=== PATIENT | male | born 1970 | race Caucasian/White ===

== ENCOUNTER 2021-10-24 07:42 | Inpatient (IN) | payer OTHER, MEDICAID ==
[~2021-10-24] VITALS: Ht 177.8 cm; Wt 135.6 kg
[~2021-10-24 07:42] MED LIST: CLINDAMYCIN IV; LEVO750T51 PO; METH-1550 PO
--- NOTE | 2021-10-24 07:48 | NUR ---
pt placed in bed 10, ermd at bedside
[2021-10-24 07:49] VITALS: BP 75/43
[2021-10-24] MEDS ORDERED: PANTOPRAZOLE 40 MG INJ VIAL IVP ONE (07:55)
[2021-10-24] MEDS ORDERED: ONDANSETRON 4 MG/2 ML VIAL IVP ONE (07:55)
--- NOTE | 2021-10-24 08:00 | NUR ---
received by als run from [facility] c/o nosebleed, vomiting blood since this am. pt gcs 15 appears lethargic pale. stach on monitor 130s hypotensive in 70s. double lumen picc line noted fluids infusing per order.
[2021-10-24] MEDS ORDERED: NACL 0.9% 1,000 ML IV ONE (08:05)
[2021-10-24] MEDS ORDERED: BENZOCAINE 20% 57 GM CAN MC ONE (08:08)
[2021-10-24 08:27] LABS: BASOPHILS # (AUTO) 0.1 K/uL (0.00-0.22); BASOPHILS % (AUTO) 1.3 % (0.0-2.0); EOSINOPHILS # (AUTO) 0.3 K/uL (0-0.4); EOSINOPHILS % (AUTO) 5.2 % (0.0-4.0); HEMATOCRIT 24.7 % (36-52); HEMOGLOBIN 8.8 g/dL (12.0-18.0); LYMPHOCYTES # (AUTO) 1.6 K/uL (2.0-11.5); LYMPHOCYTES % (AUTO) 25.9 % (20.5-51.1); MEAN CORPUSCULAR HEMOGLOBIN 31 pg (27-31); MEAN CORPUSCULAR HGB CONC 36 g/dL (33-37); MEAN CORPUSCULAR VOLUME 86.7 fL (80-94); MONOCYTES # (AUTO) 0.5 K/uL (0.8-1.0); MONOCYTES % (AUTO) 7.8 % (1.7-9.3); NEUTROPHILS # (AUTO) 3.6 K/uL (1.8-7.7); NEUTROPHILS % (AUTO) 59.8 % (42.2-75.2); PLATELET COUNT (AUTO) 63 K/uL (140-450); RED BLOOD CELL COUNT(AUTO) 2.85 MIL/uL (4.20-6.10); RED CELL DISTRIBUTION WIDTH 17.3 % (11.6-13.7)
--- NOTE | 2021-10-24 08:30 | NUR ---
pt vomited large amounts of dark red blood with clots approx 150ml attempted ngtube twice without success. pt remains hypotensive tachycardic
[2021-10-24 08:49] LABS: ALBUMIN 2.5 g/dL (3.4-5.0); ANION GAP 9.6 (8-16); CARBON DIOXIDE 25.2 mmol/L (21-32); CREATININE 0.8 mg/dL (0.6-1.3); POTASSIUM 3.8 mmol/L (3.5-5.1); TOTAL BILIRUBIN 1.7 mg/dL (0.0-1.0)
[2021-10-24] MEDS ORDERED: NOREPINEPHRINE 4 MG/4 ML VIAL IV ONE ×6 (09:01→21:19)
[2021-10-24] MEDS ORDERED: NOREPINEPHRINE 4 MG in DEXTROSE 5% 250 ML IV ONE (09:10)
--- NOTE | 2021-10-24 09:31 | NUR ---
levophed infusing per orders
[2021-10-24 09:38] LABS: CREATINE KINASE MB 2.8 ng/mL (0-3.6)
[2021-10-24] MEDS ORDERED: cefTRIAXone 1,000 MG VIAL ONE (09:39)
--- NOTE | 2021-10-24 09:40 | NUR ---
1st unit of prbcs infusing per order wide open per MD order
--- NOTE | 2021-10-24 10:21 | NUR ---
2nd unit of prbcs infusing tolerating well. no adverse reaction noted. will continue to monitor.
[2021-10-24] MEDS ORDERED: fentaNYL citrate 0.05 MG/ML VIAL IVP ONE ×2 (10:35→16:30)
[2021-10-24] MEDS: PANTOPRAZOLE 80 MG in NACL 0.9% 100 ML IVP SCH (11:15)
--- NOTE | 2021-10-24 12:05 | NUR ---
ADMITTING MD AT BEDSIDE
--- NOTE | 2021-10-24 12:05 | NUR ---
3RD UNIT OF PRBCS INFUSING TOLERATING WELL
--- NOTE | 2021-10-24 12:06 | NUR ---
LEVOPHED AT 30MCG/MIN , MADE AWARE. NO FURTHER ORDERS FOR PRESSURES BUT ORDERS FOR MORE BLOOD TO BE TRANSFUSED
--- NOTE | 2021-10-24 12:10 | NUR ---
triple lumen central line placed to right IJ by er md. castaneda for immediate use per .
[2021-10-24] MEDS ORDERED: HYDROcodone/APAP 5/325 MG 1 TAB TAB PO PRN (12:20)
[2021-10-24] MEDS ORDERED: MORPHINE SULFATE 2 MG/ML SYR IVP PRN (12:20)
[2021-10-24] MEDS ORDERED: SODIUM PHOS / POTASSIUM PHOS 1 PKT PDR PO PRN (12:20)
[2021-10-24] MEDS ORDERED: KCL 20 MEQ/WATER INJ PREMIX 200 ML IV PRN (12:20)
[2021-10-24] MEDS ORDERED: ACETAMINOPHEN 325 MG TAB PO PRN (12:20)
[2021-10-24] MEDS ORDERED: MAG SULF 2000 MG/WATER PREMIX 50 ML IV PRN (12:20)
[2021-10-24] MEDS ORDERED: DOCUSATE SODIUM 100 MG GELCAP PO PRN (12:20)
--- NOTE | 2021-10-24 12:30 | NUR ---
pt with uncontrollable amounts of dark red rectal bleeding with large amount of clots. pt appears pale cool, lethargic. cleaned and repositioned. blood infusing per order. md at bedside aware. paged dr castillo spoke to him regarding condition and need for emergent GI intervention
[2021-10-24] MEDS ORDERED: OCTREOTIDE ACETATE 100 MCG/ML VIAL IV ONE (12:35)
[2021-10-24 12:58] LABS: MAGNESIUM 1.6 mg/dL (1.8-2.4); PHOSPHORUS 3.9 mg/dL (2.5-4.9)
--- NOTE | 2021-10-24 13:00 | NUR ---
pt continues with large amount of rectal bleeding with clots x2 episodes of hematemesis. stach on monitor. hypotensive. blood infusing, levophed 30mcg/min infusing. MD aware.
[2021-10-24] MEDS: OCTREOTIDE ACETATE 1.25 MG in NACL 0.9% 250 ML IV SCH (14:00)
[2021-10-24] MEDS ORDERED: fentaNYL citrate 0.05 MG/ML VIAL ONE (14:23)
[2021-10-24] MEDS ORDERED: MIDAZOLAM 5 MG/5 ML VIAL ONE (14:23)
[2021-10-24] MEDS ORDERED: diphenhydrAMINE 50 MG/ML VIAL ONE (14:23)
[2021-10-24] MEDS ORDERED: ERYTHROMYCIN 250 MG in NACL 0.9% 100 ML IV SCH (14:30)
--- NOTE | 2021-10-24 14:39 | NUR ---
# 16 FR Gonzalez catheter with 10 ml utilizing sterile technique. Immediate return of CL YELLOW 300 ml urine noted. Bedside drainage bag placed below level of bladder. Urine sample collected and sent to lab. Pt tolerated procedure WELL.
[2021-10-24 15:12] LABS: BARBITURATE, URINE NEGATIVE ng/ml (NEG <=200); BENZODIAZEPINE, URINE POSITIVE ng/mL (NEG <=200); CANNABINOID, URINE NEGATIVE ng/mL (NEG <=50); COCAINE, URINE NEGATIVE ng/mL (NEG <=300); PHENCYCLIDINE SCREEN,URINE NEGATIVE ng/mL (NEG <=25)
[2021-10-24 15:13] LABS: OPIATE, URINE POSITIVE ng/mL (NEG <=2000)
--- NOTE | 2021-10-24 15:15 | NUR ---
gi at bedside for egd
--- NOTE | 2021-10-24 15:40 | NUR ---
completed egd with banding
[2021-10-24] MEDS ORDERED: PHENYLEPHRINE 10 MG/ML VIAL ONE (15:42)
--- NOTE | 2021-10-24 16:00 | NUR ---
pt alert oriented drowsy from procedure. breathing unlabored. no active bleeding noted. stach on monitor. iv infusing levophed per order. tolerated well. f/c draining to gravity. will continue to closely monitor.
[2021-10-24 16:25] LABS: BASOPHILS % (AUTO) 0.1 % (0.0-2.0); EOSINOPHILS % (AUTO) 0.1 % (0.0-4.0); HEMATOCRIT 31.5 % (36-52); HEMOGLOBIN 10.6 g/dL (12.0-18.0); LYMPHOCYTES # (AUTO) 1.2 K/uL (2.0-11.5); LYMPHOCYTES % (AUTO) 7.5 % (20.5-51.1); MEAN CORPUSCULAR HEMOGLOBIN 30 pg (27-31); MEAN CORPUSCULAR HGB CONC 34 g/dL (33-37); MEAN CORPUSCULAR VOLUME 88.6 fL (80-94); MONOCYTES # (AUTO) 0.9 K/uL (0.8-1.0); MONOCYTES % (AUTO) 5.7 % (1.7-9.3); NEUTROPHILS # (AUTO) 13.8 K/uL (1.8-7.7); NEUTROPHILS % (AUTO) 86.6 % (42.2-75.2); PLATELET COUNT (AUTO) 112 K/uL (140-450); RED BLOOD CELL COUNT(AUTO) 3.56 MIL/uL (4.20-6.10); RED CELL DISTRIBUTION WIDTH 16.3 % (11.6-13.7); WHITE BLOOD COUNT (AUTO) 15.9 K/uL (4.8-10.8)
[2021-10-24] MEDS ORDERED: EPINEPHrine PFS 0.1 MG/ML SYR IVP ONE ×3 (16:30→16:33)
[2021-10-24] MEDS ORDERED: MIDAZOLAM 2 MG/2 ML VIAL IVP ONE (16:30)
--- NOTE | 2021-10-24 17:30 | NUR ---
pt requesting methadone states in withdrawl. spoke to GI pt to remain NPO until tomorrow. orders for morphine IV to be given for withdrawl.
[2021-10-24] MEDS ORDERED: MORPHINE SULFATE 4 MG/ML SYR ONE (17:58)
[2021-10-24] MEDS ORDERED: MORPHINE SULFATE 4 MG/ML SYR IVP PRN (18:00)
--- NOTE | 2021-10-24 18:20 | NUR ---
medicated pt with 4mg morphine ivp for withdrawl. pt c/o restlessness, body pain and anxiety. dr anna delgado.
[2021-10-24] MEDS ORDERED: LORazepam 2 MG/ML VIAL ONE (18:32)
[2021-10-24 19:32] LABS: APPEARANCE,URINE CLEAR (CLEAR); BILIRUBIN,URINE NEGATIVE (NEGATIVE); BLOOD, URINE TRACE-I (NEGATIVE); COLOR,URINE YELLOW (YELLOW); LEUKOCYTE ESTERASE ,URINE NEGATIVE (NEGATIVE); NITRITE, URINE NEGATIVE (NEGATIVE); UGLUCOSE NEGATIVE (NEGATIVE)
[2021-10-24 20:00] VITALS: BP 125/90
[2021-10-24 21:00] VITALS: BP 115/66
[2021-10-24] MEDS: NACL 0.9% 1,000 ML IV SCH (21:30)
[2021-10-24 22:00] VITALS: BP 112/61
[2021-10-24] MEDS: NOREPINEPHRINE 8 MG in DEXTROSE 5% 250 ML IV PRN (22:15)
[2021-10-24] MEDS: LORazepam 2 MG/ML VIAL IVP PRN (22:24)
[2021-10-24 23:00] VITALS: BP 110/66
[2021-10-25] VITALS (23 sets, daily range): BP systolic 90–130; BP diastolic 51–84
--- NOTE | 2021-10-25 00:36 | NUR ---
PATIENT AWAKE ALERT ON ROOM AIR SAT 97% PATIENT ON MONITOR SINUS TACH HAS IJ IN RIGHT NECK INFUSING LEVOPHED 7 MCG 26ML HOUR.PROTONIX 10 MG, SANDOSTATIN 25 MCG. PATIENT HAS F/C DRAINING AJIT URINE, A RECTAL TUBE. NS AT 80 HOUR.PATIENT ASK FOR ATIVAN WAS GIVEN 2 MG ATIVAN IVP AT 2224.[address] SCAN OF ABDOMEN.
[2021-10-25 00:44] LABS: HEMATOCRIT 27.3 % (36-52); HEMOGLOBIN 9.6 g/dL (12.0-18.0)
[2021-10-25] MEDS: PANTOPRAZOLE 80 MG in NACL 0.9% 100 ML IVP SCH ×2 (02:07→12:05)
[2021-10-25 06:00] LABS: BASOPHILS # (AUTO) 0.1 K/uL (0.00-0.22); BASOPHILS % (AUTO) 0.6 % (0.0-2.0); EOSINOPHILS # (AUTO) 0.2 K/uL (0-0.4); EOSINOPHILS % (AUTO) 1.7 % (0.0-4.0); HEMATOCRIT 24.3 % (36-52); HEMOGLOBIN 8.6 g/dL (12.0-18.0); LYMPHOCYTES # (AUTO) 1.6 K/uL (2.0-11.5); LYMPHOCYTES % (AUTO) 14.7 % (20.5-51.1); MEAN CORPUSCULAR HEMOGLOBIN 30 pg (27-31); MEAN CORPUSCULAR HGB CONC 35 g/dL (33-37); MEAN CORPUSCULAR VOLUME 85.2 fL (80-94); MONOCYTES % (AUTO) 8.7 % (1.7-9.3); NEUTROPHILS # (AUTO) 8.2 K/uL (1.8-7.7); NEUTROPHILS % (AUTO) 74.3 % (42.2-75.2); PLATELET COUNT (AUTO) 80 K/uL (140-450); RED BLOOD CELL COUNT(AUTO) 2.85 MIL/uL (4.20-6.10); RED CELL DISTRIBUTION WIDTH 16.5 % (11.6-13.7)
[2021-10-25] MEDS: LORazepam 2 MG/ML VIAL IVP PRN (06:07)
[2021-10-25 06:22] LABS: ANION GAP 8.2 (8-16); CARBON DIOXIDE 24.1 mmol/L (21-32); CREATININE 0.7 mg/dL (0.6-1.3); POTASSIUM 4.3 mmol/L (3.5-5.1)
[2021-10-25] MEDS ORDERED: NOREPINEPHRINE 4 MG/4 ML VIAL IV ONE (08:31)
[2021-10-25] MEDS: NOREPINEPHRINE 8 MG in DEXTROSE 5% 250 ML IV PRN (08:49)
--- NOTE | 2021-10-25 08:49 | NUR ---
PATIENT HAS BEEN SCREENED AND CATEGORIZED HIGH NUTRITION RISK. PATIENT WILL BE SEEN WITHIN 1-2 DAYS OF ADMISSION. 10/24/21-10/25/[address]
[2021-10-25] MEDS ORDERED: METHADONE 10 MG TAB PO SCH (09:00)
[2021-10-25] MEDS: NACL 0.9% 1,000 ML IV SCH ×2 (09:37→10:03)
[2021-10-25] MEDS: METHADONE 10 MG TAB PO SCH (09:38)
[2021-10-25] MEDS: METOPROLOL 25 MG TAB PO SCH ×2 (10:05→21:00)
[2021-10-25] MEDS ORDERED: MORPHINE SULFATE 2 MG/ML SYR IVP PRN (12:55)
[2021-10-25 13:48] LABS: HEMATOCRIT 22.3 % (36-52); HEMOGLOBIN 7.8 g/dL (12.0-18.0)
[2021-10-25] MEDS ORDERED: EPINEPHrine PFS 0.1 MG/ML SYR IVP ONE (13:59)
--- NOTE | 2021-10-25 15:15 | NUR ---
10/25/21 RD INITIAL ASSESSMENT COMPLETED PLEASE REFER TO NUTRITION ASSESSMENT UNDER CARE ACTIVITY FOR ESTIMATED NUTRITIONAL NEEDS. 1. WHEN/IF MEDICALLY APPROPRIATE, ADVANCE TO REGULAR DIET 2. RD TO FOLLOW-UP 2-3 DAYS, HIGH RISK PIPE ARORA RD
--- NOTE | 2021-10-25 16:23 | NUR ---
RECTAL TUBE REMOVED PER PATIENT'S REQUEST. DR LITTLE AWARE
--- NOTE | 2021-10-25 17:30 | NUR ---
DR BORJA CALLED REGARDING PATIENT'S STATUS. PROVIDED UPDATE THAT PT HAS BEEN OFF LEVO SINCE AM. RECTAL TUBE WAS TAKEN OUT WITH 25 CC OUTPUT, NO HEMATEMESIS NOTED THROUGHOUT SHIFT. PER MD, SWITCH PROTONIX GTT TO PO, ADD CARAFATE, AND OKAY TO ADVANCE FULL LIQUID DIET.
[2021-10-25 18:52] LABS: HEMATOCRIT 21.8 % (36-52); HEMOGLOBIN 7.6 g/dL (12.0-18.0)
--- NOTE | 2021-10-25 19:41 | NUR ---
REPORT RECEIVED AT BEDSIDE FROM DAYSLEANNEFT RN. PT IS LAYING IN BED ASLEEP. VSS WITH TACHY HR OF 120. ON ROOM AIR. ALOCX4. FULL LIQUID DIET. LUNG SOUNDS CLEAR THROUGHOUT. SKIN INTACT. SKIN TO BLE ROUGH AND DARKER COLOR IN APPEARANCE WITH NO PAIN AND WRAPPED IN HAWA BANDAGE FROM JEIMYFT RN. PT STATED IS FEELING COMFORTABLE AT THIS TIME. INITIAL ASSESSMENT COMPLETED. SAFETY MEASURES ARE IN PLACE. CALL LIGHT WITHIN REACH. WILL CONTINUE TO MONITOR.
[2021-10-25] MEDS: PANTOPRAZOLE 40 MG TABEC PO SCH (21:00)
[2021-10-25] MEDS: SUCRALFATE 1 GM TAB PO SCH (21:00)
--- NOTE | 2021-10-25 21:32 | NUR ---
PT LAYING IN BED ASLEEP. 2100 MEDICATIONS ADMINISTERED ORDERED. NO SIGNS OF DISTRESS NOTED AT THIS TIME. VSS. WILL CONTINUE TO MONITOR.
[2021-10-26] VITALS (24 sets, daily range): BP systolic 12–123; BP diastolic 39–74
--- NOTE | 2021-10-26 00:39 | NUR ---
PT REPOSITIONED AND BM CLEANED. BM TARRY LIKE WITH LIQUID CONSISTENCY. PT TOLERATED WELL. VSS. BED IN LOWEST POSITION AND CALL LIGHT WITHIN REACH. WILL CONTINUE TO MONITOR.
[2021-10-26 00:58] LABS: HEMATOCRIT 20.1 % (36-52); HEMOGLOBIN 7.1 g/dL (12.0-18.0)
[2021-10-26] MEDS: LORazepam 2 MG/ML VIAL IVP PRN ×2 (03:11→22:00)
[2021-10-26] MEDS: NOREPINEPHRINE 8 MG in DEXTROSE 5% 250 ML IV PRN ×2 (03:11→14:13)
--- NOTE | 2021-10-26 03:15 | NUR ---
PT SYSTOLIC BP @83. LEVOPHED STARTED PER PROTOCOL. PT COMPLAINT OF ANXIETY AND TROUBLE SLEEPING. PRN ATIVAN ADMINISTERED ORDERED. TOLERATED WELL. WILL CONTINUE TO MONITOR.
[2021-10-26 06:04] LABS: BASOPHILS # (AUTO) 0.1 K/uL (0.00-0.22); BASOPHILS % (AUTO) 0.7 % (0.0-2.0); EOSINOPHILS # (AUTO) 0.3 K/uL (0-0.4); EOSINOPHILS % (AUTO) 3.5 % (0.0-4.0); HEMATOCRIT 20.1 % (36-52); HEMOGLOBIN 7.1 g/dL (12.0-18.0); LYMPHOCYTES # (AUTO) 1.4 K/uL (2.0-11.5); LYMPHOCYTES % (AUTO) 15.1 % (20.5-51.1); MEAN CORPUSCULAR HEMOGLOBIN 31 pg (27-31); MEAN CORPUSCULAR HGB CONC 35 g/dL (33-37); MEAN CORPUSCULAR VOLUME 86.9 fL (80-94); MONOCYTES # (AUTO) 0.8 K/uL (0.8-1.0); MONOCYTES % (AUTO) 8.2 % (1.7-9.3); NEUTROPHILS # (AUTO) 6.8 K/uL (1.8-7.7); NEUTROPHILS % (AUTO) 72.5 % (42.2-75.2); PLATELET COUNT (AUTO) 66 K/uL (140-450); RED BLOOD CELL COUNT(AUTO) 2.31 MIL/uL (4.20-6.10); RED CELL DISTRIBUTION WIDTH 17.2 % (11.6-13.7); WHITE BLOOD COUNT (AUTO) 9.3 K/uL (4.8-10.8)
[2021-10-26 06:22] LABS: ANION GAP 7.7 (8-16); CARBON DIOXIDE 25.4 mmol/L (21-32); CREATININE 0.7 mg/dL (0.6-1.3); POTASSIUM 4.1 mmol/L (3.5-5.1)
[2021-10-26] MEDS: NACL 0.9% 1,000 ML IV SCH ×2 (07:00→10:25)
--- NOTE | 2021-10-26 07:16 | NUR ---
REPORT GIVEN AT BEDSIDE TO DAYSHIFT RN FOR CONTINUITY OF CARE.
--- NOTE | 2021-10-26 07:17 | NUR ---
RECEIVED REPORT FROM HEATER TENDER NURSE. PT IS RESTING IN BED AND IN NO SIGN OF DISTRESS. PT IS AWAKE AND ORIENTED X 4. ALL LUNG TOLBERT ARE CLEAR, NON LABORED AND ON ROOM AIR. PT HAS A RIGHT IJ 3 LUMEN RUNNING LEVOPHED AT 5 MCG/MIN, OCTREOTI AT 25 MCG/HR AND NS AT 80 ML/HR. PT HAS A LEFT AC 18G WITH A SALINE LOCK. SO IS IN PLACE. PT HAS OSTEOMYELITIS ON LOWER EXTREMITIES. ALL SAFETY PRECAUTIONS ARE IN PLACE. WILL CONTINUE TO MONITOR.
[2021-10-26] MEDS: METHADONE 10 MG TAB PO SCH (08:28)
[2021-10-26] MEDS: METOPROLOL 25 MG TAB PO SCH ×2 (08:28→21:00)
[2021-10-26] MEDS: SUCRALFATE 1 GM TAB PO SCH ×4 (08:28→21:00)
[2021-10-26] MEDS: PANTOPRAZOLE 40 MG TABEC PO SCH ×2 (08:28→21:00)
--- NOTE | 2021-10-26 08:30 | NUR ---
ALL MEDICATIONS ADMINISTERED AND PT IS STILL RESTING WITH NO SING OF DISTRESS.
--- NOTE | 2021-10-26 12:30 | NUR ---
PER MD ORDERS REDUCED LEVOPHED TO 2 MCG/MIN PT BP IS 147/67. WILL CONTINUE TO MONITOR.
--- NOTE | 2021-10-26 16:00 | NUR ---
DR. LIM AT BEDSIDE AND ASSESSED PT.
[2021-10-26] MEDS: OCTREOTIDE ACETATE 1.25 MG in NACL 0.9% 250 ML IV SCH (17:25)
--- NOTE | 2021-10-26 19:30 | NUR ---
ENDORSED CARE TO MANUFACTURING PLANNER NURSE FOR CONTINUITY OF CARE.
--- NOTE | 2021-10-26 21:58 | NUR ---
PATIENT AWAKE ALERT REST WELL NO C/O ON ROOM AIR ON MONITOR SINUS HAS N.S 80 HOUR ,SANDOSTATIN 25 MCG LEVOPHED 2 MCG. SAT 99%. B/P 111/66. ATIVAN GIVEN 2 MG IVP TO HELP PATIENT SLEEP.NO DISTRESS NOTED.
[2021-10-27] VITALS (24 sets, daily range): BP systolic 90–141; BP diastolic 43–78
[2021-10-27] MEDS: OCTREOTIDE ACETATE 1.25 MG in NACL 0.9% 250 ML IV SCH (01:00)
[2021-10-27 06:30] LABS: BASOPHILS % (AUTO) 0.8 % (0.0-2.0); EOSINOPHILS # (AUTO) 0.4 K/uL (0-0.4); EOSINOPHILS % (AUTO) 6.9 % (0.0-4.0); LYMPHOCYTES # (AUTO) 1.1 K/uL (2.0-11.5); LYMPHOCYTES % (AUTO) 18.5 % (20.5-51.1); MEAN CORPUSCULAR HEMOGLOBIN 31 pg (27-31); MEAN CORPUSCULAR HGB CONC 36 g/dL (33-37); MEAN CORPUSCULAR VOLUME 87.2 fL (80-94); MONOCYTES # (AUTO) 0.5 K/uL (0.8-1.0); MONOCYTES % (AUTO) 7.4 % (1.7-9.3); NEUTROPHILS % (AUTO) 66.4 % (42.2-75.2); PLATELET COUNT (AUTO) 60 K/uL (140-450); RED BLOOD CELL COUNT(AUTO) 2.25 MIL/uL (4.20-6.10); RED CELL DISTRIBUTION WIDTH 17.6 % (11.6-13.7); WHITE BLOOD COUNT (AUTO) 6.1 K/uL (4.8-10.8)
[2021-10-27 06:36] LABS: HEMATOCRIT 19.7 % (36-52)
[2021-10-27 07:05] LABS: ANION GAP 9.2 (8-16); CARBON DIOXIDE 25.4 mmol/L (21-32); CREATININE 0.7 mg/dL (0.6-1.3); POTASSIUM 3.6 mmol/L (3.5-5.1)
--- NOTE | 2021-10-27 07:20 | NUR ---
RECEIVED REPORT FROM DIRECTOR OF COMMUNITY CENTER NURSE. PT IS RESTING IN BED AND IN NO SIGN OF DISTRESS. PT IS AWAKE AND ORIENTED X 4. ALL LUNG TOLBERT ARE CLEAR, NON LABORED AND ON ROOM AIR. PT HAS A RIGHT IJ 3 LUMEN RUNNING LEVOPHED AT 2 MCG/MIN, OCTREOTI AT 25 MCG/HR AND NS AT 80 ML/HR. PT HAS A LEFT AC 18G WITH A SALINE LOCK. SO IS IN PLACE. PT HAS OSTEOMYELITIS ON LOWER EXTREMITIES. ALL SAFETY PRECAUTIONS ARE IN PLACE. WILL CONTINUE TO MONITOR.
[2021-10-27] MEDS: METHADONE 10 MG TAB PO SCH (08:56)
[2021-10-27] MEDS: SUCRALFATE 1 GM TAB PO SCH ×4 (08:56→20:45)
[2021-10-27] MEDS: MAGNESIUM OXIDE 400 MG TAB PO SCH (08:57)
[2021-10-27] MEDS: METOPROLOL 25 MG TAB PO SCH ×2 (08:57→20:44)
[2021-10-27] MEDS: PANTOPRAZOLE 40 MG TABEC PO SCH ×2 (08:57→20:44)
--- NOTE | 2021-10-27 09:00 | NUR ---
ALL MEDICATIONS WERE ADMINISTERED PER MD ORDERS. WILL CONTINUE TO MONITOR.
--- NOTE | 2021-10-27 10:00 | NUR ---
PT IS RESTING IN BED WATCHING TV. NO SING OF DISTRESS NOTED.
[2021-10-27] MEDS: NACL 0.9% 1,000 ML IV SCH ×2 (11:59→20:30)
--- NOTE | 2021-10-27 16:09 | NUR ---
SO CARE AND CHG BATH PROVIDED.
--- NOTE | 2021-10-27 19:20 | NUR ---
ENDORSED CARE TO THE GLUE JOINTER FEEDER NURSE FOR CONTINUITY OF CARE
--- NOTE | 2021-10-27 19:25 | NUR ---
RECEIVED CARE FROM DAY SHIFT NURSE, ASSUMED CARE. PATIENT IN STABLE CONDITION IN NO APPARENT ACUTE DISTRESS, VSS. A&O X4, PERRLA 3MM, DENIED ANY PAIN. PATIENT BREATHING AT RA O2 SAT AT 98%, CLEAR LUNG SOUNDS UPON AUSCULTATION. RIGHT IJ LINE PRESENT RUNNING SANDOSTATIN 25 MCG AND NS 80 ML/HR. CENTRAL DRESSING DRY AND INTACT WITH NO SIGNS OF INFECTION. ACTIVE BOWEL SOUNDS PRESENT IN ALL FOUR QUADRANTS. F/C IN PLACE. BILATERAL LOWER EXTREMITIES NOTED TO BE SWOLLEN, WRAPPED IN BANDAGES, BANDAGES DRY WITH NO DRAINAGE. ALL SAFETY MEASURES IN PLACE, BED LOCKED AT LOWEST POSITION, CALL LIGHT WITHIN REACH. WILL CONTINUE TO MONITOR AND FOLLOW POC.
--- NOTE | 2021-10-27 22:00 | NUR ---
PATIENT OBSERVED RESTING COMFORTABLY WATCHING TELEVISION IN BED IN NO ACUTE DISTRESS, VSS, PATIENT DENIED ANY PAIN. WILL CONTINUE TO MONITOR AND FOLLOW POC.
--- NOTE | 2021-10-27 23:58 | NUR ---
OBSERVED PATIENT RESTING COMFORTABLY IN BED WITH NO SIGNS OF ACUTE DISTRESS, VSS, RUNNING SANDOSTATIN 25 MCG/HR AND NS 80 ML/HR VIA R IJ. OFFERED PATIENT ORANGE AND CRANBERRY JUICE. PATIENT CONTINUES TO BREATH AT RA. WILL CONTINUE TO MONITOR AND FOLLOW POC.
[2021-10-28] VITALS (16 sets, daily range): BP systolic 89–137; BP diastolic 43–80
--- NOTE | 2021-10-28 01:40 | NUR ---
CALLED AFTER HOURS PHARMACY AND CONFIRMED DOSAGE OF 100 MCG/HR AT 20 ML/HR FOR SANDOSTATIN ORDER. IV SANDOSTATIN RUNNING AT 100 MCG/HR VIA R IJ CENTRAL LINE. PATIENT IN NO ACUTE DISTRESS. WILL CONTINUE TO MONITOR AND FOLLOW POC.
--- NOTE | 2021-10-28 03:38 | NUR ---
OBSERVED PATIENT RESTING COMFORTABLY IN BED WATCHING TV. VSS WITH NO SIGNS OF ACUTE DISTRESS. ALL SAFETY MEASURES IN PLACE, WILL CONTINUE TO MONITOR AND FOLLOW POC.
--- NOTE | 2021-10-28 05:25 | NUR ---
PROVIDED MORNING, PATIENT IN STABLE CONDITION IN NO APPARENT ACUTE DISTRESS, VSS. CENTRAL LINE DRESSING CHANGE DONE. F/C EMPTIED WITH 1,000 ML OUTPUT. CRANBERRY JUICE AND WATER OFFERED. PATIENT DENIED ANY PAIN. ALL SAFETY MEASURES IN PLACE, WILL CONTINUE TO MONITOR AND FOLLOW POC.
[2021-10-28 06:57] LABS: ANION GAP 7.5 (8-16); CARBON DIOXIDE 29.3 mmol/L (21-32); CREATININE 0.7 mg/dL (0.6-1.3); POTASSIUM 3.8 mmol/L (3.5-5.1)
--- NOTE | 2021-10-28 07:19 | NUR ---
GAVE REPORT TO DAY SHIFT NURSE, ENDORSED CARE.
[2021-10-28] MEDS: OCTREOTIDE ACETATE 1.25 MG in NACL 0.9% 250 ML IV SCH ×2 (07:48→14:26)
[2021-10-28] MEDS: MAGNESIUM OXIDE 400 MG TAB PO SCH (08:42)
[2021-10-28 08:43] LABS: EOSINOPHILS # (AUTO) 0.2 K/uL (0-0.4); EOSINOPHILS % (AUTO) 6.6 % (0.0-4.0); LYMPHOCYTES # (AUTO) 0.7 K/uL (2.0-11.5); LYMPHOCYTES % (AUTO) 22.5 % (20.5-51.1); MEAN CORPUSCULAR HEMOGLOBIN 31 pg (27-31); MEAN CORPUSCULAR HGB CONC 36 g/dL (33-37); MEAN CORPUSCULAR VOLUME 88.1 fL (80-94); MONOCYTES # (AUTO) 0.3 K/uL (0.8-1.0); MONOCYTES % (AUTO) 8.4 % (1.7-9.3); NEUTROPHILS % (AUTO) 61.5 % (42.2-75.2); RED BLOOD CELL COUNT(AUTO) 2.16 MIL/uL (4.20-6.10); RED CELL DISTRIBUTION WIDTH 17.1 % (11.6-13.7); WHITE BLOOD COUNT (AUTO) 3.2 K/uL (4.8-10.8)
[2021-10-28] MEDS: PANTOPRAZOLE 40 MG TABEC PO SCH ×2 (08:43→20:42)
[2021-10-28] MEDS: METOPROLOL 25 MG TAB PO SCH ×2 (08:43→20:42)
[2021-10-28] MEDS: SUCRALFATE 1 GM TAB PO SCH ×4 (08:43→20:42)
[2021-10-28] MEDS: METHADONE 10 MG TAB PO SCH (08:44)
[2021-10-28 08:46] LABS: HEMATOCRIT 19.1 % (36-52); HEMOGLOBIN 6.8 g/dL (12.0-18.0)
[2021-10-28 08:47] LABS: PLATELET COUNT (AUTO) 55 K/uL (140-450)
--- NOTE | 2021-10-28 11:32 | NUR ---
[facility] UN[facility] #[id number] STARTED
[2021-10-28] MEDS: NACL 0.9% 1,000 ML IV SCH ×2 (12:25→22:13)
--- NOTE | 2021-10-28 13:22 | NUR ---
[facility] METHADONE DOSAGE AND PT UPDATES.
--- NOTE | 2021-10-28 14:00 | NUR ---
PRBC INFUSED, TOLERATED, NO S/S INFUSION REACTION, NO ALLERIGIC REACTION NOTED.
--- NOTE | 2021-10-28 15:12 | NUR ---
10/28/21 RD FOLLOW UP COMPLETED PLEASE REFER TO NUTRITION ASSESSMENT UNDER CARE ACTIVITY FOR ESTIMATED NUTRITIONAL NEEDS. 1. CONTINUE FULL LIQUID DIET TOLERATED -RECOMMEND XAVIRE BID PROVIDING 160 KCAL AND 33 GM PROTEIN 2. WHEN/IF MEDICALLY APPROPRIATE, ADVANCE TO REGULAR DIET 3. RD TO FOLLOW-UP 2-3 DAYS, HIGH RISK PIPE ARORA RD
[2021-10-28] MEDS: FERROUS SULFATE 325 MG TABEC PO SCH (17:55)
--- NOTE | 2021-10-28 20:00 | NUR ---
RECEIVED PATIENT AWAKE AND ALERT IN BED. PATIENT ON ROOM AIR, SOB OR S/S OF DISTRESS AT THIS TIME. PATIENT DENIES PAIN. TRIPLE LUMEN RIJ CENTRAL LINE NOTED. PT ON OCTREOTIDE DRIP. SO CATH IN PLACE, DRAINING CLEAR YELLOW URINE. ELASTIC BANDAGE NOTED ON BLE, DRESSING CLEAN DRY AND INTACT. PT DENIES NUMBING OR TINGLING. PLAN OF CARE DISCUSSED. PT VERBALIZED UNDERSTANDING. BED LOWERED WITH CALL LIGHT WITHIN REACH. WILL CONTINUE TO MONITOR
[2021-10-29] VITALS (9 sets, daily range): BP systolic 104–124; BP diastolic 55–71
[2021-10-29] MEDS: OCTREOTIDE ACETATE 1.25 MG in NACL 0.9% 250 ML IV SCH (04:17)
[2021-10-29 06:01] LABS: BASOPHILS % (AUTO) 1.1 % (0.0-2.0); EOSINOPHILS # (AUTO) 0.3 K/uL (0-0.4); EOSINOPHILS % (AUTO) 7.8 % (0.0-4.0); HEMATOCRIT 23.2 % (36-52); HEMOGLOBIN 8.1 g/dL (12.0-18.0); LYMPHOCYTES # (AUTO) 0.8 K/uL (2.0-11.5); LYMPHOCYTES % (AUTO) 20.7 % (20.5-51.1); MEAN CORPUSCULAR HEMOGLOBIN 30 pg (27-31); MEAN CORPUSCULAR HGB CONC 35 g/dL (33-37); MEAN CORPUSCULAR VOLUME 87.1 fL (80-94); MONOCYTES # (AUTO) 0.3 K/uL (0.8-1.0); NEUTROPHILS # (AUTO) 2.6 K/uL (1.8-7.7); NEUTROPHILS % (AUTO) 62.4 % (42.2-75.2); PLATELET COUNT (AUTO) 54 K/uL (140-450); RED BLOOD CELL COUNT(AUTO) 2.66 MIL/uL (4.20-6.10); RED CELL DISTRIBUTION WIDTH 16.8 % (11.6-13.7); WHITE BLOOD COUNT (AUTO) 4.1 K/uL (4.8-10.8)
[2021-10-29 06:30] LABS: ANION GAP 10.8 (8-16); CARBON DIOXIDE 26.3 mmol/L (21-32); CREATININE 0.7 mg/dL (0.6-1.3); POTASSIUM 4.1 mmol/L (3.5-5.1)
--- NOTE | 2021-10-29 07:17 | NUR ---
PATIENT REPORT GIVEN TO AM NURSE. PATIENT ENDORSED IN STABLE CONDITION
[2021-10-29] MEDS: FERROUS SULFATE 325 MG TABEC PO SCH (08:04)
[2021-10-29] MEDS: METOPROLOL 25 MG TAB PO SCH ×2 (08:05→21:00)
[2021-10-29] MEDS: METHADONE 10 MG TAB PO SCH (08:05)
[2021-10-29] MEDS: MAGNESIUM OXIDE 400 MG TAB PO SCH (08:05)
[2021-10-29] MEDS: SUCRALFATE 1 GM TAB PO SCH ×4 (08:06→21:00)
[2021-10-29] MEDS: PANTOPRAZOLE 40 MG TABEC PO SCH ×2 (08:07→21:00)
[2021-10-29] MEDS: ONDANSETRON 4 MG/2 ML VIAL IM/IVP PRN (09:38)
--- NOTE | 2021-10-29 09:38 | NUR ---
PT C/O SLIGHT NAUSEA AFTER DRINKING ENSURE RAPIDLY, MEDICATED WITH ZOFRAN
[2021-10-29] MEDS: NACL 0.9% 1,000 ML IV SCH (11:13)
[2021-10-30] VITALS (7 sets, daily range): BP systolic 113–134; BP diastolic 67–82
--- NOTE | 2021-10-30 01:19 | NUR ---
PATIENT AWAKE ALERT RESTING IN BED NO C/O SINUS ON MONITOR HAS RIGHT I.J TRIPLE LUMEN INFUSING NS 50 HOUR TODAY H/H 8.2 FOR CBC IN A.M. LUNGS DIMINISH PATIENT ON ROOM AIR SAT 95% TEMP 98.4 HAS F/C DRAING AJIT URINE. PATIENT B/P 104/61 DID NOT RECEIVE LOPRESSOR 25 MG NO SIGN OF ACUTE DISTRESS.
[2021-10-30] MEDS: NACL 0.9% 1,000 ML IV SCH ×2 (06:00→15:00)
--- NOTE | 2021-10-30 07:15 | NUR ---
RECEIVED BEDSIDE REPORT FROM QUANG ALMONTE FOR CONTINUITY OF CARE. PT IS AAOX4, AWAKE, EYES OPEN, PERRLA, 3MM. RIJ CENTRAL LINE, TRIPLE LUMEN, PATENT INTACT, NO S/S OF INFECTION, RUNNING NS AT 50 ML/HR. LUNG SOUNDS CLEAR THROUGHOUT, PT DENIES COUGH, DENIES SOB. HEART SOUNDS S1&2, PT DENIES CHEST PAIN, SR ON MONITOR. BOWEL SOUNDS ACTIVE THROUGHOUT. F/C IN PLACE, DRAINING TO GRAVITY. LIMITED ROM BLE, ELASTIC BANDAGE NOTED ON BLE, DRESSING CLEAN DRY AND INTACT. PT DENIES NUMBING OR TINGLING. STANDARD PRECAUTIONS IN PLACE, CALL LIGHT WITHIN REACH, ALL NEEDS ARE MET AT THIS TIME. Addendum: 10/30/21 at 0800 by Madisyn Michaels RN RECEIVED BEDSIDE REPORT FROM QUANG ALMONTE FOR CONTINUITY OF CARE. PT IS AAOX4, AWAKE, EYES OPEN, PERRLA, 3MM. RIJ CENTRAL LINE, TRIPLE LUMEN, PATENT INTACT, NO S/S OF INFECTION, RUNNING NS AT 50 ML/HR. LUNG SOUNDS CLEAR THROUGHOUT, PT DENIES COUGH, DENIES SOB. HEART SOUNDS S1&2, PT DENIES CHEST PAIN, SR ON MONITOR. BOWEL SOUNDS ACTIVE THROUGHOUT. F/C IN PLACE, DRAINING TO GRAVITY. LIMITED ROM BLE, ELASTIC BANDAGE NOTED ON BLE, DRESSING CLEAN DRY AND INTACT. PT DENIES NUMBING OR TINGLING. INITIAL ASSESSMENT COMPLETED. STANDARD PRECAUTIONS IN PLACE, CALL LIGHT WITHIN REACH, ALL NEEDS ARE MET AT THIS TIME, WILL CONTINUE TO MONITOR.
[2021-10-30] MEDS: FERROUS SULFATE 325 MG TABEC PO SCH (08:09)
[2021-10-30] MEDS: SUCRALFATE 1 GM TAB PO SCH ×4 (08:10→22:16)
[2021-10-30] MEDS: METHADONE 10 MG TAB PO SCH (08:11)
[2021-10-30] MEDS: METOPROLOL 25 MG TAB PO SCH ×2 (08:11→22:17)
[2021-10-30] MEDS: PANTOPRAZOLE 40 MG TABEC PO SCH ×2 (08:12→22:17)
[2021-10-30] MEDS: MAGNESIUM OXIDE 400 MG TAB PO SCH (08:12)
[2021-10-30] MEDS ORDERED: FER325 PO (08:31)
[2021-10-30] MEDS ORDERED: PANT40EC56 PO (08:31)
[2021-10-30] MEDS ORDERED: METR-520 PO (08:31)
[2021-10-30] MEDS ORDERED: METO25TA PO (08:31)
[2021-10-30] MEDS ORDERED: DOCU-299 PO (08:31)
--- NOTE | 2021-10-30 08:35 | NUR ---
SEEN AND EXAMINED BY DR TIJERINA.
--- NOTE | 2021-10-30 08:57 | NUR ---
DC PLANNING: THE PATIENT ADMITTED FROM [facility] [place] WITH C/O HEMATEMESIS AND BLOODY STOOL. H/O LE OSTEOMYELITIS, PTIENT RQITED 7 UNITS PRBCS AND 2 UNITS FFP, 2 UNIT PLTS, STARTED ON PROTONIX AND SANDOSTATIN GTTS. EGD DONE WITH FINDINGS OF ACTIVE BLEEDING AT THE GE JUNTION, ARTERIAL AND ESOPHAGEAL VARICES. PATIENT HAD 4 CLIPS PLACED. AMAIRANI SPOKE WITH THE PATIENTS SON FARSHAD BY PHONE, PATIENT HAS BEEN AT [facility] FOR FOUR MONTHS AFTER BEING DIAGNOSES WITH OSTEO IN THE RIGHT LE. DC ORDER TO RETURN TO [facility], SON IS IN AGREEMENT, AMAIRANI SPOKE WITH LARA AT [facility], ROOM TO BE ASSIGNED AFTER CLINICALS ARE FAXED. CM WILL FOLLOW FOR NEEDS. Addendum: 10/30/21 at 1207 by Radha Wilson DC PLANNING: PATIENT ASSIGNED ROOM 51A, NUMBER TO CALL REPORT IS [phone], ACCEPTING MD IS DR HINTON. [facility] IS SETTING UP TRANSPORT AND WILL CALL WITH [facility]. CM WILL FOLLOW FOR NEEDS. Addendum: 10/30/21 at 1438 by Radha Wilson CM DC PLANNING: [facility] UNABLE TO PROVIDE TRANSPORT, 1900 NEUROSURGICAL NURSE PRACTITIONER TIME WITH [facility], CAROLYN ENAMARIBELL, NUMBER FOR THEM IS [phone]. CM WILL FOLLOW FOR NEEDS. Addendum: 10/30/21 at 1606 by Radha Wilson CM DC PLANNING: [facility] UNABLE TO TAKE THE PATIENT TONIGHT BECAUSE OF ROOM CHANGES. CM WILL FOLLOW FOR NEEDS. Addendum: 10/31/21 at 1138 by Radha Wilson CM DC PLANNING: CM SPOKE WITH LARA AT [facility] [place], NO MALE BEDS UNTIL 11/07. STATES SHE HAS REFERRED THE PATIENT TO A SISTER FACILITY IN [place] BUT METHADONE MIGHT BE A BARRIER. SHE WILL SPEAK WITH THE [facility] CLINIC TO SEE IF THEY CAN DELIVER TO THE [facility] FAC[facility]. CM WILL FOLLOW FOR NEEDS. Addendum: 10/31/21 at 1400 by Radha Wilson CM DC PLANNING: PATIENT UNABLE TO DC UNTIL THURSDAY, WILL GO TO [facility] IF [facility] CAN'T ACCEPT. BARRIER TO DISCHARGE IS DELIVERY OF 7 DAYS OF METHADONE FROM HIS CLINIC, IF [facility] IS ABLE TO ACCEPT THIS WEEKEND THEY WILL CALL THE [employer] [facility]. CM WILL FOLLOW FOR NEEDS. Addendum: 11/04/21 at 1516 by Radha Wilson CM DC PLANNING: PATIENT ACCEPTED BACK TO [facility] TODAY, ROOM 3A, DR HINTON ACCEPTING. TRIED TO ARRANGE BARIATRIC TRANSPORT THROUGH [facility], [facility] DOESN'T TAKE BARIATRIC PATIENTS. NOTIFIED LARA AT [facility] THAT PATIENT WILL COME IN AM AFTER TRANSPORT IS ARRANGED. CM WILL FOLLOW FOR NEEDS. Addendum: 11/05/21 at 1025 by Radha Wilson DC PLANNING: PATIENT SET UP WITH [facility] NEUROSURGICAL NURSE PRACTITIONER AT 1600 ([phone]). CM WILL FOLLOW FOR NEEDS.
--- NOTE | 2021-10-30 09:15 | NUR ---
PT AT BEDSIDE.
[2021-10-30] MEDS: ONDANSETRON 4 MG/2 ML VIAL IM/IVP PRN (10:59)
--- NOTE | 2021-10-30 11:00 | NUR ---
PT COMPLAINS OF MILD NAUSEA. MEDICATED WITH ZOFRAN PRN PER MD ORDER. NADR. WILL CONTINUE TO MONITOR.
--- NOTE | 2021-10-30 13:00 | NUR ---
PT IS AWAKE IN THE BED, FEELING ANXIOUS ABOUT TRANSFER BACK TO [facility]. EDUCATED PATIENT ABOUT CASE MANAGEMENT COMMUNICATION. PT EXPRESSES UNDERSTANDING. WILL CONTINUE TO MONITOR.
--- NOTE | 2021-10-30 15:00 | NUR ---
PT AWAKE, EYES OPEN. RESTING COMFORTABLY IN THE BED. NO SIGNS OF ACUTE DISTRESS. CALL LIGHT WITHIN REACH. WILL CONTINUE TO MONITOR.
--- NOTE | 2021-10-30 15:45 | NUR ---
CALLED [facility] RN FOR REPORT AND COULD NOT CONTINUE WITH REPORT DUE TO [facility] NOT HAVING ROOM FOR PATIENT TODAY. CASE MANAGEMENT CONFIRMED, WILL TRANSFER TOMORROW INSTEAD.
--- NOTE | 2021-10-30 16:00 | NUR ---
GAVE BEDSIDE REPORT TO WASHINGTON ALMONTE FOR CONTINUITY OF CARE.
--- NOTE | 2021-10-30 18:00 | NUR ---
PT TRANSFERRED TO [facility] ROOM 110B WITH WASHINGTON ALMONTE. NO SIGNS OF ACUTE DISTRESS.
--- NOTE | 2021-10-30 18:01 | NUR ---
RECEIVED PATIENT REPORT FROM SUZY DAY FOR CONTINUITY OF CARE AND TRANSFERRED TO ROOM 110B. PT IS STABLE. WILL CONTINUE TO MONITOR
--- NOTE | 2021-10-30 19:30 | NUR ---
ENDORSED TO BRICKLAYER PAVING BRICK NURSE FOR CONTINUITY OF CARE. PT IS STABLE.
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
[2021-10-30] MEDS: LORazepam 2 MG/ML VIAL IM/IVP PRN ×2 (20:21→22:56)
[2021-10-31] VITALS: BP 124/65
[2021-10-31] MEDS: NACL 0.9% 1,000 ML IV SCH ×2 (02:55→15:25)
[2021-10-31 04:00] VITALS: BP 124/65
--- NOTE | 2021-10-31 07:15 | NUR ---
RECEIVE REPORT FROM ALMOND PASTE MOLDER NURSE FOR CONTINUITY OF PATIENT CARE. PATIENT SLEEPING. NO ACUTE DISTRESS NOTED. BREATHING EVEN AND UNLABORED. PATIENT ON BABAK AIR. CALL LIGHT WITHIN REACH. ALL SAFETY MEASURES IN PLACE. WILL CONTINUE TO MONITOR.
--- NOTE | 2021-10-31 07:15 | NUR ---
ENDORSED PATIENT TO AM NURSE FOR CONTINUITY OF CARE. PT IS STABLE.
[2021-10-31 08:00] VITALS: BP 126/72
[2021-10-31] MEDS: FERROUS SULFATE 325 MG TABEC PO SCH (08:51)
[2021-10-31] MEDS: PANTOPRAZOLE 40 MG TABEC PO SCH ×2 (08:52→20:36)
[2021-10-31] MEDS: SUCRALFATE 1 GM TAB PO SCH ×4 (08:52→20:36)
[2021-10-31] MEDS: MAGNESIUM OXIDE 400 MG TAB PO SCH (08:52)
[2021-10-31] MEDS: METOPROLOL 25 MG TAB PO SCH ×2 (08:53→20:38)
[2021-10-31] MEDS: METHADONE 10 MG TAB PO SCH (08:54)
--- NOTE | 2021-10-31 09:10 | NUR ---
PATIENT AWAKE AND ALERT. NO ACUTE DISTRESS NOTED. PATIENT ON BABAK AIR. CALL LIGHT WITHIN REACH. SCHEDULED MEDICATION GIVEN. PT AT BEDSIDE.ALL SAFETY MEASURES IN PLACE. WILL CONTINUE TO MONITOR.
[2021-10-31] MEDS: LORazepam 2 MG/ML VIAL IM/IVP PRN ×2 (11:27→20:35)
--- NOTE | 2021-10-31 11:27 | NUR ---
PATIENT BECAME AGITATED ATIVAN 1MG GIVEN. SECURITY CALLED TO ASSIST.
--- NOTE | 2021-10-31 12:39 | NUR ---
PATIENT REFUSE CARAFATE. EDUCATED PATIENT OF THE IMPORTANCE OF TAKING MEDICATION. PATIENT VERBALIZE UNDERSTANDING BUT CONTINUE TO REFUSE MEDICATION.
--- NOTE | 2021-10-31 14:48 | NUR ---
PATIENT SLEEPING. NO ACUTE DISTRESS NOTED. PATIENT ON BABAK AIR. SON FARSHAD CALLED TO FOLLOWUP ON PATIENT. CALL LIGHT WITHIN REACH. ALL SAFETY MEASURES IN PLACE. WILL CONTINUE TO MONITOR.
--- NOTE | 2021-10-31 14:49 | NUR ---
10/31/21 RD FOLLOW UP COMPLETED PLEASE REFER TO NUTRITION ASSESSMENT UNDER CARE ACTIVITY FOR ESTIMATED NUTRITIONAL NEEDS. 1. CONTINUE REGULAR DIET TOLERATED -RECOMMEND ENSURE BID IF PO INTAKE < 75% 2. MONITOR PO INTAKE 3. RD TO FOLLOW-UP 2-3 DAYS, HIGH RISK PIPE ARORA, RD
[2021-10-31 16:00] VITALS: BP 110/54
--- NOTE | 2021-10-31 16:18 | NUR ---
PATIENT AWAKE. NO ACUTE DISTRESS NOTED. PATIENT ON BABAK AIR. CALL LIGHT WITHIN REACH. ALL SAFETY MEASURES IN PLACE. WILL CONTINUE TO MONITOR.
--- NOTE | 2021-10-31 17:56 | NUR ---
VASCULAR TECH AT BEDSIDE. PATIENT AWAKE. NO ACUTE DISTRESS NOTED. PATIENT ON BABAK AIR. CALL LIGHT WITHIN REACH. ALL SAFETY MEASURES IN PLACE. WILL CONTINUE TO MONITOR.
--- NOTE | 2021-10-31 19:20 | NUR ---
ENDORSED TO BOATBUILDER SUPERVISOR NURSE FOR CONTINUITY OF PATIENT CARE. PATIENT STABLE.
--- NOTE | 2021-10-31 19:21 | NUR ---
RECEIVED REPORT FROM AM NURSE. PATIENT IS AWAKE, ALERT VERBALLY RESPONSIVE. ABLE TO MAKE NEEDS KNOWN. NO ACUTE DISTRESS NOTED. RESPIRATION EVEN UNLABORED. SO CATHETER IN PLACE DRAINING WELL. NO COMPLAINTS OF PAIN . SAFETY MEASURES IN PLACE. CALL LIGHT WITHIN REACH. WILL CONTINUE TO MONITOR.
--- NOTE | 2021-10-31 20:48 | NUR ---
ADMINISTERED MEDICATIONS DUE SCHEDULED. TOLERATED WELL.
--- NOTE | 2021-10-31 21:50 | NUR ---
FARSHAD KEVIN ( THE PT.'S SON ) CALLED HE LEFT THE CONTACT NUMBERS [phone] - HE EXPRESSING HE WANTS TO KNOW THE UPDATE ABOUT THE PT. - WILL ENDORSE TO DUANE THE CONCERN AND THE CONTACT NUMBERS AND - TELL HER TO ENDORSE TO ANANT NURSE TO CONNECT TO THE DOCTOR DURING ROUNDS . Addendum: 10/31/21 at 2156 by Nedra Pereira RN PT'S CONTACT NUMBERS GAVE TO DUANE AND SHE VERBALIZED UNDERSTANDING ABOUT THE PT.'S SON CONCERN .- PT'S SON WANT TO TALK THE DOCTOR BRANDT [place] DURING ROUNDS . Addendum: 10/31/21 at 2156 by Nedra Pereira RN THE ABOVE WORD PT'S IS AN ERROR ENTRY , INSTEAD OF PT.'S SON .
[2021-11-01] VITALS: BP 126/65
--- NOTE | 2021-11-01 03:00 | NUR ---
ROUNDED PATIENT, PT IS SLEEPING. CHEST RISE AND FALL NO LABORED BREATHING. SAFETY MEASURES IN PLACE. CALL LIGHT WITHIN REACH.
[2021-11-01] MEDS: NACL 0.9% 1,000 ML IV SCH ×2 (03:55→16:25)
--- NOTE | 2021-11-01 07:28 | NUR ---
BEDSIDE ENDORSEMENT GIVEN TO AM NURSE FOR CONTINUITY OF CARE. PT IS SLEEPING. NO S/S OF RESPIRATORY DISTRESS. ENDORSED TO CALL THE SON WHEN THE AP DO ROUNDS.
--- NOTE | 2021-11-01 07:38 | NUR ---
PATIENT RECEIVED FORM NIGHT NURSE PATIENT RESTING IN BED NO S/SX OF DISTRESS AT THIS TIME . ALL SAFETY MEASURES ARE IN PLACE. CALL LIGHT WITHIN REACH, ALL BELONGINGS WITHIN REACH , NON SLIP SOCKS ON BED ALARM ON
[2021-11-01 08:00] VITALS: BP 107/59
[2021-11-01] MEDS: FERROUS SULFATE 325 MG TABEC PO SCH (08:32)
[2021-11-01] MEDS: PANTOPRAZOLE 40 MG TABEC PO SCH ×2 (08:32→21:32)
[2021-11-01] MEDS: SUCRALFATE 1 GM TAB PO SCH ×4 (08:33→21:32)
[2021-11-01] MEDS: METOPROLOL 25 MG TAB PO SCH ×2 (08:33→21:00)
[2021-11-01] MEDS: MAGNESIUM OXIDE 400 MG TAB PO SCH (08:33)
[2021-11-01] MEDS: METHADONE 10 MG TAB PO SCH (08:36)
[2021-11-01] MEDS: LORazepam 2 MG/ML VIAL IM/IVP PRN ×2 (10:30→16:50)
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
--- NOTE | 2021-11-01 13:25 | NUR ---
PT TOLERATED LUNCH , NO S/SX OF DISTRESS AT THIS TIME
[2021-11-01 16:00] VITALS: BP 111/50
--- NOTE | 2021-11-01 16:20 | NUR ---
PATIENT RESTING IN BED , PT GIVEN DINNER PT TOLERATING WELL , CALM AT THIS TIME . PT REORIENTED WHEN SEEING VISUALIZATIONS THAT ARE NOT PRESENT
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
--- NOTE | 2021-11-01 18:00 | NUR ---
PT GIVEN WATER, IV FLUIDS ASSESSED PT REORIENTED, ALL SAFETY MEASURES IN PLACE.
--- NOTE | 2021-11-01 19:28 | NUR ---
PATIENT ENDORSED TO FRAUD PREVENTION ANALYST NURSE , PATIENT IN STABLE CONDITION.
--- NOTE | 2021-11-01 19:29 | NUR ---
RECEIVED REPORT FROM AM NURSE. PATIENT IN BED AWAKE RESTING COMFORTABLY. NO SOB NOTED. IVF NS INFUSING AT 80 MLS. TOLERATING WELL. SO CATHETER IN PLACE DRAINING WELL. SAFETY MEASURES IN PLACE. CALL LIGHT WITHIN REACH. NO COMPLAINTS OF PAIN AT THIS TIME.
--- NOTE | 2021-11-01 21:32 | NUR ---
DUE SCHEDULED MEDS GIVEN ORDERED. TOLERATED WELL.
[2021-11-02] VITALS: BP 100/52
[2021-11-02] MEDS: LORazepam 2 MG/ML VIAL IM/IVP PRN (00:47)
[2021-11-02] MEDS: HYDRAGUARD CREAM TP SCH ×2 (01:00→13:44)
[2021-11-02] MEDS: GAUZE TP SCH ×2 (01:00→13:44)
--- NOTE | 2021-11-02 03:06 | NUR ---
ROUNDED PATIENT SEEN SLEEPING. NO S/S OF RESPIRATORY DISTRESS. CHEST RISE AND FALL.
[2021-11-02] MEDS: NACL 0.9% 1,000 ML IV SCH ×2 (04:55→17:54)
--- NOTE | 2021-11-02 07:20 | NUR ---
BEDSIDE ENDORSEMENT GIVEN TO AM NURSE FOR CONTINUITY OF CARE. PT STABLE.
[2021-11-02 07:24] LABS: BASOPHILS % (AUTO) 0.8 % (0.0-2.0); EOSINOPHILS # (AUTO) 0.1 K/uL (0-0.4); EOSINOPHILS % (AUTO) 5.1 % (0.0-4.0); HEMATOCRIT 22.9 % (36-52); HEMOGLOBIN 7.8 g/dL (12.0-18.0); LYMPHOCYTES # (AUTO) 0.7 K/uL (2.0-11.5); LYMPHOCYTES % (AUTO) 24.8 % (20.5-51.1); MEAN CORPUSCULAR HEMOGLOBIN 30 pg (27-31); MEAN CORPUSCULAR HGB CONC 34 g/dL (33-37); MEAN CORPUSCULAR VOLUME 88.3 fL (80-94); MONOCYTES # (AUTO) 0.3 K/uL (0.8-1.0); MONOCYTES % (AUTO) 9.3 % (1.7-9.3); NEUTROPHILS # (AUTO) 1.7 K/uL (1.8-7.7); PLATELET COUNT (AUTO) 44 K/uL (140-450); WHITE BLOOD COUNT (AUTO) 2.9 K/uL (4.8-10.8)
--- NOTE | 2021-11-02 07:40 | NUR ---
RECEIVED PATIENT REPORT FROM NIGHT NURSE FOR CONTINUITY OF CARE. PT IS AOX4, ABLE TO MAKE NEEDS KNOWN. RESPIRATIONS EVEN AND UNLABORED. ON ROOM AIR, NO DISTRESS NOTED. SKIN IS WARM, DRY, AND INTACT. HAS A RIJ TRIPLE LUMEN INFUSING FLUIDS WELL. INTACT AND PATENT. DENIES PAIN AT THE MOMENT. PLAN OF CARE DISCUSSED. ALL SAFETY MEASURES ARE IN PLACE. CALL LIGHT WITHIN REACH, ALL BELONGINGS WITHIN REACH , NON SLIP SOCKS ON BED ALARM ON WILL CONTINUE TO MONITOR.
[2021-11-02 08:00] VITALS: BP 121/57
[2021-11-02 08:38] LABS: ANION GAP 12.2 (8-16); CARBON DIOXIDE 25.4 mmol/L (21-32); CREATININE 0.7 mg/dL (0.6-1.3); POTASSIUM 3.6 mmol/L (3.5-5.1)
[2021-11-02 08:44] LABS: ALBUMIN 2.4 g/dL (3.4-5.0); TOTAL BILIRUBIN 2.1 mg/dL (0.0-1.0)
[2021-11-02] MEDS: SUCRALFATE 1 GM TAB PO SCH ×4 (08:52→21:54)
[2021-11-02] MEDS: PANTOPRAZOLE 40 MG TABEC PO SCH ×2 (08:52→21:53)
[2021-11-02] MEDS: FERROUS SULFATE 325 MG TABEC PO SCH (08:52)
[2021-11-02] MEDS: MAGNESIUM OXIDE 400 MG TAB PO SCH (08:52)
[2021-11-02] MEDS: METOPROLOL 25 MG TAB PO SCH ×2 (08:52→21:53)
[2021-11-02] MEDS: METHADONE 10 MG TAB PO SCH (09:10)
--- NOTE | 2021-11-02 09:15 | NUR ---
ALL SCHEDULED MEDS GIVEN. PT IS STABLE. NO DISTRESS NOTED. WILL CONTINUE TO MONITOR.
--- NOTE | 2021-11-02 11:28 | NUR ---
ENDORSED TO SUZY NORMAN FOR CONTINUITY OF CARE. PT IS STABLE.
--- NOTE | 2021-11-02 11:30 | NUR ---
RECEIVED PT RESTING IN BED. NO SOB NOTED. NO SIGNS OF PAIN. RT IJ TRIPLE LUMEN CENTRAL LINE PATENT AND INTACT. BED ON LOW POSITION WITH 2 SIDE RAIL RAISED UP FOR SAFETY. CALL LIGHT WITHIN REACH, PT VERBALIZED UNDERSTANDING.
--- NOTE | 2021-11-02 13:30 | NUR ---
WOUND DRESSING TO BLE AND CENTRAL LINE DRESSING DONE.
[2021-11-02 16:00] VITALS: BP 96/63
--- NOTE | 2021-11-02 17:48 | NUR ---
RECEIVED REPORT FROM SUZY NORMAN FOR CONTINUITY OF CARE. PT IS STABLE AT THIS TIME. PLAN OF CARE DISCUSSED.
--- NOTE | 2021-11-02 19:05 | NUR ---
WILL ENDORSE PT TO PRODUCTION CONTROL EXPEDITER NURSE FOR CONTINUITY OF CARE. PT IS STABLE AT THIS TIME. PLAN OF CARE DISCUSSED.
--- NOTE | 2021-11-02 19:06 | NUR ---
RECD.RESTING IN BED, AWAKE, A/OX4. RESPIRATION EVEN AND UNLABORED. WATCHING TV. IV OF NS INFUSING AT 80 ML/HR, RIGHT IJ TRIPLE LUMEN CENTRAL LINE. BILATERAL LOWER EXTREMITIES CELLULITIS COVERED WITH DRESSING, DRY AND INTACT. ELEVATED ON PILLOWS. MEDICATIONS AND CARE FOR THE NIGHT DISCUSSED WITH PATIENT. VERBALIZED UNDERSTANDING. DENIES PAIN 0/10.
--- NOTE | 2021-11-02 20:00 | NUR ---
Patient's Plan of Care was discussed and reviewed with LORENZO Patel.
--- NOTE | 2021-11-02 20:00 | NUR ---
SNACKS GIVEN REQUESTED. WATCHING TV. NO COMPLAINT OF PAIN 0/10.
[2021-11-02] MEDS ORDERED: ZOLPIDEM 5 MG TAB PO SCH (21:20)
--- NOTE | 2021-11-02 21:53 | NUR ---
MEDICATIONS FOR THE NIGHT ADMINISTERED. TOLERATED WELL. REQUESTED AGAIN FOR ANOTHER SNACK.
--- NOTE | 2021-11-02 23:00 | NUR ---
SLEEPING COMFORTABLY IN BED. RESPIRATION EVEN AND UNLABORED. CALLLIGHT IN REACH. BED ON ALARM.
[2021-11-03] VITALS: BP 118/57
--- NOTE | 2021-11-03 01:00 | NUR ---
ASLEEP ON HIS BACK. RESPIRATION EVEN AND UNLABORED. NO APPEARANCE OF PAIN NOTED, 0/10.
[2021-11-03] MEDS: GAUZE TP SCH ×2 (01:36→12:27)
[2021-11-03] MEDS: HYDRAGUARD CREAM TP SCH ×2 (01:36→12:27)
--- NOTE | 2021-11-03 03:00 | NUR ---
CHECKED PATIENT, STILL SLEEPING COMFORTABLY. NO RESPIRATORY DISTRESS. BED ON ALARM.
--- NOTE | 2021-11-03 05:00 | NUR ---
AWAKE IN BED, REQUEST FOR ANOTHER SNACK GIVEN. ADVISED TO GO BACK TO SLEEP AFTER EATING.
[2021-11-03] MEDS: NACL 0.9% 1,000 ML IV SCH ×2 (05:55→18:28)
--- NOTE | 2021-11-03 07:30 | NUR ---
RECEIVED REPORT FROM CAGE TENDER NURSE FOR CONTINUITY OF CARE. PT IS STABLE AT THIS TIME. PLAN OF CARE DISCUSSED. Addendum: 11/03/21 at 1931 by Divine Cannon RN WRONG PT.
--- NOTE | 2021-11-03 07:40 | NUR ---
CONDITION REMAIN STABLE. ENDORSED TO AM SHIFT NURSE FOR CONTINUITY OF CARE.
[2021-11-03 08:00] VITALS: BP 97/54
--- NOTE | 2021-11-03 08:05 | NUR ---
RECEIVED REPORT FROM BARREL RAISER NURSE FOR CONTINUITY OF CARE. PT IS STABLE. PLAN OF CARE DISCUSSED.
[2021-11-03] MEDS: METOPROLOL 25 MG TAB PO SCH ×2 (09:00→21:30)
[2021-11-03 09:16] LABS: BASOPHILS % (AUTO) 0.9 % (0.0-2.0); EOSINOPHILS # (AUTO) 0.2 K/uL (0-0.4); EOSINOPHILS % (AUTO) 6.2 % (0.0-4.0); HEMOGLOBIN 8.1 g/dL (12.0-18.0); LYMPHOCYTES # (AUTO) 0.7 K/uL (2.0-11.5); LYMPHOCYTES % (AUTO) 23.8 % (20.5-51.1); MEAN CORPUSCULAR HEMOGLOBIN 30 pg (27-31); MEAN CORPUSCULAR HGB CONC 34 g/dL (33-37); MEAN CORPUSCULAR VOLUME 88.4 fL (80-94); MONOCYTES # (AUTO) 0.3 K/uL (0.8-1.0); MONOCYTES % (AUTO) 9.9 % (1.7-9.3); NEUTROPHILS # (AUTO) 1.6 K/uL (1.8-7.7); NEUTROPHILS % (AUTO) 59.2 % (42.2-75.2); PLATELET COUNT (AUTO) 40 K/uL (140-450); RED BLOOD CELL COUNT(AUTO) 2.72 MIL/uL (4.20-6.10); RED CELL DISTRIBUTION WIDTH 18.2 % (11.6-13.7); WHITE BLOOD COUNT (AUTO) 2.8 K/uL (4.8-10.8)
[2021-11-03] MEDS: FERROUS SULFATE 325 MG TABEC PO SCH (10:29)
[2021-11-03] MEDS: PANTOPRAZOLE 40 MG TABEC PO SCH ×2 (10:29→21:30)
[2021-11-03] MEDS: MAGNESIUM OXIDE 400 MG TAB PO SCH (10:29)
[2021-11-03] MEDS: SUCRALFATE 1 GM TAB PO SCH ×4 (10:29→21:29)
[2021-11-03] MEDS: METHADONE 10 MG TAB PO SCH (10:29)
[2021-11-03 16:00] VITALS: BP 112/59
--- NOTE | 2021-11-03 19:25 | NUR ---
PT JUST HAD A LARGE BM WITH BLOOD. SOFT/ BLACK STOOL. NOTIFIED DR. MORALES OF THIS FINDING AND TOOK A STOOL SAMPLE TO SEND TO LAB. ENDORSED TO ARCHITECTURAL ENGINEER NURSE.
--- NOTE | 2021-11-03 19:26 | NUR ---
RECEIVED REPORT FROM MORNING SHIFT NURSE FOR CONTINUITY OF CARE. PATIENT IS STABLE IN BED. A&OX3. VERBALLY RESPONSIVE AND ABLE TO COMMUNICATE NEEDS. DENIES PAIN AT THIS TIME. RESPIRATIONS EVEN AND UNLABORED. ON ROOM AIR WITH NO S/SX OF APPARENT ACUTE DISTRESS. PATIENT HAS SO CATHETER WITH A VISIBLE URINE OUTPUT. IV SITE TO THE RIGHT IJ IS PATENT, INTACT, AND ASYMPTOMATIC WITH NS INFUSING AT 80 ML/HOUR. PLAN OF CARE AND WHITE COMMUNICATION BOARD UPDATED. BED IN LOW/LOCKED POSITION. CALL LIGHT WITHIN REACH. PATIENT ENCOURAGED TO CALL FOR ANY NEEDS/ASSISTANCE. WILL CONTINUE TO MONITOR.
--- NOTE | 2021-11-03 19:26 | NUR ---
ENDORSED PT TO SHODDY MILL WORKER NURSE FOR CONTINUITY OF CARE. PT IS STABLE AT THIS TIME. PLAN OF CARE DISCUSSED. Addendum: 11/03/21 at 1932 by Divine Cannon RN STILL WAITING ON RESPONSE FROM DR. MORALES ABOUT BM WITH BLOOD. ENDORSED INFO TO SHODDY MILL WORKER NURSE.
--- NOTE | 2021-11-03 19:30 | NUR ---
ENDORSED PT TO TRANSPLANT REGISTERED NURSE NURSE FOR CONTINUITY OF CARE. PT IS STABLE AT THIS TIME. PLAN OF CARE DISCUSSED. Addendum: 11/03/21 at 1932 by Divine Cannon RN WRONG PT.
[2021-11-03 20:00] VITALS: BP 112/59
--- NOTE | 2021-11-03 21:26 | NUR ---
ADMINISTERED SCHEDULED MEDICATIONS PER MD ORDER. TOLERATED WELL. NO ADVERSE REACTION NOTED. PATIENT DENIES PAIN. RESPIRATIONS EVEN AND UNLABORED WITH NO APPARENT S/SX OF ACUTE DISTRESS. SOME CONFUSION NOTED. PATIENT IS STATING NEXT DOOR PATIENT IS HIS SON. RE-ORIENTED PATIENT TO HOSPITAL ENVIRONMENT. PHOTOS TAKEN OF WOUND SITE PER FACILITY PROTOCOL. WHITE COMMUNICATION BOARD UPDATED. ALL SAFETY MEASURES IN PLACE. CALL LIGHT WITHIN REACH. WILL CONTINUE TO MONITOR.
--- NOTE | 2021-11-03 23:25 | NUR ---
CHECKED PATIENT. PATIENT IS STABLE AND ASLEEP. CHEST IS RISING AND FALLING SYMMETRICALLY. RESPIRATIONS EVEN AND UNLABORED WITH NO APPARENT S/SX OF ACUTE DISTRESS. WHITE COMMUNICATION BOARD UPDATED. ALL SAFETY MEASURES IN PLACE. CALL LIGHT WITHIN REACH. WILL CONTINUE TO MONITOR.
[2021-11-04] MEDS: GAUZE TP SCH ×2 (01:04→12:56)
[2021-11-04] MEDS: HYDRAGUARD CREAM TP SCH ×2 (01:05→12:57)
--- NOTE | 2021-11-04 01:25 | NUR ---
ROUNDED ON PATIENT. PATIENT IS STABLE AND ASLEEP. CHEST IS RISING AND FALLING SYMMETRICALLY. RESPIRATIONS EVEN AND UNLABORED WITH NO APPARENT S/SX OF ACUTE DISTRESS. WHITE COMMUNICATION BOARD UPDATED. ALL SAFETY MEASURES IN PLACE. CALL LIGHT WITHIN REACH. WILL CONTINUE TO MONITOR.
--- NOTE | 2021-11-04 05:25 | NUR ---
PATIENT IS AWAKE AND STABLE. DENIES PAIN. RESPIRATIONS EVEN AND UNLABORED WITH NO APPARENT S/SX OF ACUTE DISTRESS. EMPTIED FC BAG. CHARACTERISTIC OF MEDIUM YELLOW AND NON-ODOROUS NOTED. WHITE COMMUNICATION BOARD UPDATED. ALL SAFETY MEASURES IN PLACE. CALL LIGHT WITHIN REACH. WILL CONTINUE TO MONITOR.
[2021-11-04 06:07] LABS: BASOPHILS % (AUTO) 0.6 % (0.0-2.0); EOSINOPHILS # (AUTO) 0.2 K/uL (0-0.4); EOSINOPHILS % (AUTO) 6.3 % (0.0-4.0); HEMATOCRIT 23.3 % (36-52); HEMOGLOBIN 7.8 g/dL (12.0-18.0); LYMPHOCYTES # (AUTO) 0.7 K/uL (2.0-11.5); LYMPHOCYTES % (AUTO) 22.6 % (20.5-51.1); MEAN CORPUSCULAR HEMOGLOBIN 30 pg (27-31); MEAN CORPUSCULAR HGB CONC 34 g/dL (33-37); MEAN CORPUSCULAR VOLUME 89.3 fL (80-94); MONOCYTES # (AUTO) 0.3 K/uL (0.8-1.0); MONOCYTES % (AUTO) 8.5 % (1.7-9.3); NEUTROPHILS # (AUTO) 1.8 K/uL (1.8-7.7); PLATELET COUNT (AUTO) 36 K/uL (140-450); RED CELL DISTRIBUTION WIDTH 18.1 % (11.6-13.7)
[2021-11-04 06:36] LABS: ALBUMIN 2.2 g/dL (3.4-5.0); ANION GAP 9.7 (8-16); CARBON DIOXIDE 27.2 mmol/L (21-32); CREATININE 0.7 mg/dL (0.6-1.3); MAGNESIUM 1.7 mg/dL (1.8-2.4); POTASSIUM 3.9 mmol/L (3.5-5.1); TOTAL BILIRUBIN 1.8 mg/dL (0.0-1.0)
--- NOTE | 2021-11-04 07:10 | NUR ---
ENDORSED PATIENT TO MORNING SHIFT NURSE FOR CONTINUITY OF CARE. PATIENT IS STABLE.
--- NOTE | 2021-11-04 07:28 | NUR ---
RECEIVED REPORT FROM MACHINE SETTER NURSE. BREATHING SYMMETRICAL. NO S/S OF DISTRESS. CALL LIGHT IN REACH. ALL SAFETY MEASURES IN PLACE.
[2021-11-04 08:00] VITALS: BP 107/62
[2021-11-04] MEDS: METOPROLOL 25 MG TAB PO SCH ×2 (09:00→21:44)
[2021-11-04] MEDS: FERROUS SULFATE 325 MG TABEC PO SCH (09:17)
[2021-11-04] MEDS: MAGNESIUM OXIDE 400 MG TAB PO SCH (09:17)
[2021-11-04] MEDS: SUCRALFATE 1 GM TAB PO SCH ×4 (09:17→21:44)
[2021-11-04] MEDS: METHADONE 10 MG TAB PO SCH (09:18)
[2021-11-04] MEDS: PANTOPRAZOLE 40 MG TABEC PO SCH ×2 (09:18→21:44)
[2021-11-04] MEDS: NACL 0.9% 1,000 ML IV SCH ×2 (09:22→19:25)
--- NOTE | 2021-11-04 09:54 | NUR ---
PT RESTING IN BED. BREATHING SYMMETRICAL. NO S/S OF DISTRESS. CALL LIGHT IN REACH. ALL SAFETY MEASURES IN PLACE. WAITING FOR FACILITY PLACEMENT
--- NOTE | 2021-11-04 12:43 | NUR ---
PT RESTING IN BED. NO S/S OF DISTRESS. BREATHING SYMMETRICAL. CALL LIGHT IN REACH. ALL SAFETY MEASURES IN PLACE. IV RUNNING PER MD ORDERS
--- NOTE | 2021-11-04 15:22 | NUR ---
UPDATE FROM CM. PT WILL TRANSFER [place] [facility] [place] DUE TO LACK OF AVAILABLE TRANSPORT TODAY.
[2021-11-04 16:00] VITALS: BP 100/58
--- NOTE | 2021-11-04 16:03 | NUR ---
11/04/21 RD FOLLOW UP COMPLETED PLEASE REFER TO NUTRITION ASSESSMENT UNDER CARE ACTIVITY FOR ESTIMATED NUTRITIONAL NEEDS. 1. CONTINUE REGULAR DIET TOLERATED -RECOMMEND ENSURE BID IF PO INTAKE < 75% 2. MONITOR PO INTAKE 3. RD TO FOLLOW-UP 3-5 DAYS, MODERATE RISK PIPE ARORA, KLEBER
--- NOTE | 2021-11-04 18:20 | NUR ---
PT RESTING IN BED. NO S/S OF DISTRESS. BREATHING SYMMETRICAL. CALL LIGHT IN REACH. ALL SAFETY MEASURES IN PLACE. IV RUNNING PER MD ORDERS
--- NOTE | 2021-11-04 19:10 | NUR ---
RECEIVED REPORT FROM MORNING SHIFT NURSE FOR CONTINUITY OF CARE. PATIENT IS STABLE IN BED. A&OX3 WITH SOME CONFUSION. VERBALLY RESPONSIVE AND ABLE TO COMMUNICATE NEEDS. DENIES PAIN AT THIS TIME. RESPIRATIONS EVEN AND UNLABORED. ON ROOM AIR WITH NO S/SX OF APPARENT ACUTE DISTRESS. PATIENT HAS SO CATHETER WITH A VISIBLE URINE OUTPUT. IV SITE TO THE RIGHT IJ IS PATENT, INTACT, AND ASYMPTOMATIC WITH NS INFUSING AT 80 ML/HOUR. DRESSINGS ON BLE IS PRESENT WITH NO VISIBLE SOILAGE. PLAN OF CARE AND WHITE COMMUNICATION BOARD UPDATED. BED IN LOW/LOCKED POSITION. CALL LIGHT WITHIN REACH. PATIENT ENCOURAGED TO CALL FOR ANY NEEDS/ASSISTANCE. WILL CONTINUE TO MONITOR.
[2021-11-04 20:00] VITALS: BP 101/61
--- NOTE | 2021-11-04 21:10 | NUR ---
ADMINISTERED SCHEDULED MEDICATIONS PER MD ORDER. TOLERATED WELL. NO ADVERSE REACTION NOTED. PATIENT DENIES PAIN. RESPIRATIONS EVEN AND UNLABORED WITH NO APPARENT S/SX OF ACUTE DISTRESS. PROVIDED PATIENT WITH SNACKS. WHITE COMMUNICATION BOARD UPDATED. ALL SAFETY MEASURES IN PLACE. CALL LIGHT WITHIN REACH. WILL CONTINUE TO MONITOR.
--- NOTE | 2021-11-04 23:10 | NUR ---
PATIENT IS COMPLAINING THAT F/C MIGHT POSSIBLY KINKED. FLUSHED F/C WITH 100ML NS. NO OBSTRUCTION NOTED. OUTPUT IS VISIBLE. PATIENT TOLERATED WELL. PATIENT DENIES PAIN RESPIRATIONS EVEN AND UNLABORED WITH NO APPARENT S/SX OF ACUTE DISTRESS. WHITE COMMUNICATION BOARD. ALL SAFETY MEASURES IN PLACE. CALL LIGHT WITHIN REACH. WILL CONTINUE TO MONITOR.
--- NOTE | 2021-11-05 01:10 | NUR ---
CHANGED PATIENT'S DRESSING ON BILATERAL EXTREMITIES PER WOUND CARE ORDER. TOLERATED WELL. PATIENT VERBALIZED THAT HE IS THANKFUL. PATIENT DENIES PAIN. RESPIRATIONS EVEN AND UNLABORED WITH NO APPARENT S/SX OF ACUTE DISTRESS. WHITE COMMUNICATION BOARD. ALL SAFETY MEASURES IN PLACE. CALL LIGHT WITHIN REACH. WILL CONTINUE TO MONITOR.
[2021-11-05] MEDS: GAUZE TP SCH ×2 (01:22→13:02)
[2021-11-05] MEDS: HYDRAGUARD CREAM TP SCH ×2 (01:22→13:02)
--- NOTE | 2021-11-05 03:10 | NUR ---
ANSWERED CALL LIGHT. PATIENT'S IV MACHINE IS BEEPING. REPLACED IV FLUID BAG. PROVIDED WARM BLANKETS PER PATIENT REQUEST. PATIENT VERBALIZED HOW THANKFUL HE IS. PATIENT DENIES PAIN. RESPIRATIONS EVEN AND UNLABORED WITH NO APPARENT S/SX OF ACUTE DISTRESS. WHITE COMMUNICATION BOARD. ALL SAFETY MEASURES IN PLACE. CALL LIGHT WITHIN REACH. WILL CONTINUE TO MONITOR.
--- NOTE | 2021-11-05 05:10 | NUR ---
CHECKED PATIENT. STABLE AND ASLEEP. CHEST IS RISING AND FALLING. RESPIRATIONS EVEN AND UNLABORED WITH NO APPARENT S/SX OF ACUTE DISTRESS. WHITE COMMUNICATION BOARD. ALL SAFETY MEASURES IN PLACE. CALL LIGHT WITHIN REACH. WILL CONTINUE TO MONITOR.
--- NOTE | 2021-11-05 06:10 | NUR ---
SPOKE WITH NURSE PAULINO FOR PATIENT'S METHADONE TREATMENT. POSSIBLE DC TODAY PENDING TRANSPORTATION. WILL ENDORSE TO DAY SHIFT TO INCLUDE METHADONE TREATMENT OUTPATIENT BASIS UPON DC.
[2021-11-05 06:52] LABS: ALBUMIN 2.3 g/dL (3.4-5.0); ANION GAP 9.8 (8-16); CREATININE 0.7 mg/dL (0.6-1.3); MAGNESIUM 1.6 mg/dL (1.8-2.4); PHOSPHORUS 3.7 mg/dL (2.5-4.9); POTASSIUM 3.8 mmol/L (3.5-5.1); TOTAL BILIRUBIN 1.6 mg/dL (0.0-1.0)
--- NOTE | 2021-11-05 07:20 | NUR ---
RECEIVED ENDORSEMENT FROM PASTRYCOOK'S ASSISTANT NURSE FOR CONTINUITY OF CARE. PT AWAKE ON STABLE CONDITION.
[2021-11-05 08:00] VITALS: BP 98/60
[2021-11-05] MEDS: NACL 0.9% 1,000 ML IV SCH (08:38)
[2021-11-05] MEDS: MAGNESIUM OXIDE 400 MG TAB PO SCH (08:47)
[2021-11-05] MEDS: FERROUS SULFATE 325 MG TABEC PO SCH (08:47)
[2021-11-05] MEDS: PANTOPRAZOLE 40 MG TABEC PO SCH (08:47)
[2021-11-05] MEDS: METOPROLOL 25 MG TAB PO SCH (08:47)
[2021-11-05] MEDS: SUCRALFATE 1 GM TAB PO SCH ×2 (08:48→13:02)
[2021-11-05] MEDS: METHADONE 10 MG TAB PO SCH (08:50)
--- NOTE | 2021-11-05 09:00 | NUR ---
DR. LITTLE AT BED SIDE.
--- NOTE | 2021-11-05 10:00 | NUR ---
GAVE REPORT TO NURSE [place] AT [facility] FOR CONTINUITY OF CARE. INFORM OF JEFFERSON CELLULAR EQUIPMENT REPAIRER FOR METHADONE.
--- NOTE | 2021-11-05 13:05 | NUR ---
PHYSICAL THERAPY CO-SIGN The Physical Therapy Progress Notes documented by Roller Mechanic have been reviewed. Reviewed/Co-Signed by: Taylor Tinoco Documentation Done by: GINA BLACK PTA
--- NOTE | 2021-11-05 15:00 | NUR ---
PT ON BED RESTING IV FLUID RUNNING NO FLUID OVER LOAD NOTED . NO SIGN AND SYMPTOMS OF INFECTION. CALL LIGHT WITH IN EASY REACH. ALL SAFETY MEASURE IN PLACE.
--- NOTE | 2021-11-05 16:12 | NUR ---
AT BED SIDE. WOUND VAC PROPERLY WORKING. PT DENIES PAIN NOT ON ANY DISCOMFORT. CALL LIGHT WITH IN EASY REACH.
--- NOTE | 2021-11-05 16:50 | NUR ---
PT CREDIT RISK MANAGEMENT DIRECTOR BY [employer]. PT AWAKE ON STABLE CONDITION GAVE ALL DISCHARGE PACKET AND ALL BELONGING GIVEN.
== END 2021-11-05 16:50 | DRG 871 ==
LOC: MED 07:42 → MTU 12:17 → MIC 18:11 → MTU 10-30 18:00
PROVIDERS: ADMIT Hospitalist; ATTEND Hospitalist
PROC: 30233K1 Transfusion of Nonautologous Frozen Plasma into Peripheral Vein, Percutaneous Approach (ICD-10-PCS; 2021-10-24)
PROC: 30233N1 Transfusion of Nonautologous Red Blood Cells into Peripheral Vein, Percutaneous Approach (ICD-10-PCS; 2021-10-24)
PROC: 02HV33Z Insertion of Infusion Device into Superior Vena Cava, Percutaneous Approach (ICD-10-PCS; 2021-10-24)
PROC: 0W3P8ZZ Control Bleeding in Gastrointestinal Tract, Via Natural or Artificial Opening Endoscopic (ICD-10-PCS; principal; 2021-10-25)
PROC: 30233M1 Transfusion of Nonautologous Plasma Cryoprecipitate into Peripheral Vein, Percutaneous Approach (ICD-10-PCS; 2021-10-25)
PROC: 3E0G8GC Introduction of Other Therapeutic Substance into Upper GI, Via Natural or Artificial Opening Endoscopic (ICD-10-PCS; 2021-10-25)
DX: A41.9 Sepsis, unspecified organism (principal); E43 Unspecified severe protein-calorie malnutrition; J96.01 Acute respiratory failure with hypoxia; R65.21 Severe sepsis with septic shock; K92.0 Hematemesis; E87.2 Acidosis; I85.10 Secondary esophageal varices without bleeding; K92.1 Melena; M86.8X7 Other osteomyelitis, ankle and foot; D68.9 Coagulation defect, unspecified; D63.8 Anemia in other chronic diseases classified elsewhere; E83.42 Hypomagnesemia; E86.0 Dehydration; D50.0 Iron deficiency anemia secondary to blood loss (chronic); D69.6 Thrombocytopenia, unspecified; K74.60 Unspecified cirrhosis of liver; M14.679 Charcot's joint, unspecified ankle and foot; Z88.1 Allergy status to other antibiotic agents; Z79.899 Other long term (current) drug therapy; Z87.891 Personal history of nicotine dependence
CPT/HCPCS: 36415; 36430; 36556; 51701; 71045; 71275; 73610; 73630; 80048; 80053; 80305; 81003; 82150; 82272; 82550; 82553; 83605; 83690; 83735; 84100; 84484; 85018; 85025; 85384; 85610; 85730; 86886; 86900; 86901; 86920; 87040; 87086; 93005; 93925; 97110; 97112; 97116; 97163-GP; 97530; 99291; 99292; C9113; J0171; J0696; J1200; J1364; J2060; J2250; J2270; J2354; J2370; J2405; J3010; J3490; J7030; J7060; P9012; P9016; P9017; P9035; Q0092; Q9967

== ENCOUNTER 2022-05-20 15:49 | Emergency (ER) | payer OTHER, MEDICAID ==
[~2022-05-20] VITALS: Ht 177.8 cm; Wt 131.5 kg
[~2022-05-20 15:49] MED LIST changes: +ACET-10509 PO; -CLINDAMYCIN IV; +DOCU-299 PO; +FER325 PO; +LACT10SO11 PO; -LEVO750T51 PO; +METO25TA PO; +PANT40EC56 PO; +PIPE1SOL IV
[2022-05-20 15:59] VITALS: BP 115/72
[2022-05-21] MEDS ORDERED: FURO-572 PO (05:26)
== END 2022-05-20 16:30 | disposition left against medical advice (07) ==
LOC: MED 15:49
DX: R41.82 Altered mental status, unspecified (principal); Z53.21 Procedure and treatment not carried out due to patient leaving prior to being seen by health care provider

== ENCOUNTER 2022-05-20 21:31 | Inpatient (IN) | payer OTHER, MEDICAID ==
[~2022-05-20] VITALS: Ht 177.8 cm; Wt 135.6 kg
[2022-05-20 22:05] VITALS: BP 140/96
--- NOTE | 2022-05-20 22:18 | NUR ---
TO LOBBY FOLLOWING TRIAGE
[2022-05-20] MEDS ORDERED: FUROSEMIDE 40 MG/4 ML VIAL IVP ONE (23:50)
[2022-05-21 00:23] LABS: BASOPHILS % (AUTO) 0.6 % (0.0-2.0); EOSINOPHILS # (AUTO) 0.2 K/uL (0-0.4); HEMATOCRIT 38.2 % (36-52); HEMOGLOBIN 13.1 g/dL (12.0-18.0); LYMPHOCYTES % (AUTO) 16.6 % (20.5-51.1); MEAN CORPUSCULAR HEMOGLOBIN 32 pg (27-31); MEAN CORPUSCULAR HGB CONC 34 g/dL (33-37); MEAN CORPUSCULAR VOLUME 93.1 fL (80-94); MONOCYTES # (AUTO) 0.4 K/uL (0.8-1.0); MONOCYTES % (AUTO) 7.1 % (1.7-9.3); NEUTROPHILS # (AUTO) 4.4 K/uL (1.8-7.7); NEUTROPHILS % (AUTO) 72.7 % (42.2-75.2); PLATELET COUNT (AUTO) 61 K/uL (140-450); RED BLOOD CELL COUNT(AUTO) 4.11 MIL/uL (4.20-6.10); RED CELL DISTRIBUTION WIDTH 16.1 % (11.6-13.7); WHITE BLOOD COUNT (AUTO) 6.1 K/uL (4.8-10.8)
[2022-05-21 01:02] LABS: ALBUMIN 3.5 g/dL (3.4-5.0); ANION GAP 16.2 (8-16); CARBON DIOXIDE 24.5 mmol/L (21-32); CREATININE 0.7 mg/dL (0.6-1.3); POTASSIUM 3.7 mmol/L (3.5-5.1); TOTAL BILIRUBIN 3.1 mg/dL (0.0-1.0)
--- NOTE | 2022-05-21 03:25 | NUR ---
ATTEMPTED TO PLACE IV X3 WITH NO SUCCESS. MADE AWARE.
[2022-05-21] MEDS ORDERED: FUROSEMIDE 40 MG/4 ML VIAL IVP ONE (03:47)
--- NOTE | 2022-05-21 03:47 | NUR ---
UNABLE TO OBTAIN IV ACCESS FOR CT W CONTRAST. ERMD AWARE.
[2022-05-21] MEDS ORDERED: FUROSEMIDE 40 MG TAB PO ONE (03:50)
--- NOTE | 2022-05-21 03:59 | NUR ---
52 yo/m presents to ED w c/o bl leg swelling +weight gain of 40lbs in 3 months +pressure pain 8/10 non-radiating constant begining today, + slight sob, + r upper leg pain 10/10 cramping/shooting non-rad constant starting today when sitting on wheelchair, feels better when laying on R side. Pt has BL lower extremety swelling, skin hard and dark, cap refil <3 sec, unable to feel pulses d/t condition of legs. Pt denies any fevers, chills, n/v/d, chest pain. pt on methadone at home w/o relief, unk last dose. Pt has been seeing by pcp for legs condition but unsure of any diagnoses made or medical conditions aside from htn. pmh: htn allergies: denies
--- NOTE | 2022-05-21 04:35 | NUR ---
GRAHAM collectd and sent to lab.
--- NOTE | 2022-05-21 04:52 | NUR ---
GRAHAM COLLECTED AND WALKED TO LAB.
[2022-05-21] MEDS ORDERED: FURO-572 PO (05:26)
--- NOTE | 2022-05-21 05:30 | NUR ---
US AT BEDSIDE
--- NOTE | 2022-05-21 07:31 | NUR ---
Report and continution of care received from SUZY Kat.
--- NOTE | 2022-05-21 07:31 | NUR ---
REPORT GIVEN TO LONG, TRANSFER OF CARE
--- NOTE | 2022-05-21 07:58 | NUR ---
Report and transfer of care given to SUZY Mistry
--- NOTE | 2022-05-21 08:00 | NUR ---
RECEIVED PT IN [facility] AOX4. DENIES PAIN OR DISCOMFORT. NSR ON MONITOR. IV INTACT AND PATENT SL. BLE +3 PITTING EDEMA NOTED. ADMITTED TO TELE PENDING INPT BED.
[2022-05-21] MEDS ORDERED: DOCUSATE SODIUM 100 MG GELCAP PO PRN ×2 (08:10→22:55)
[2022-05-21] MEDS ORDERED: METHADONE 10 MG TAB PO SCH ×2 (09:00→09:41)
--- NOTE | 2022-05-21 09:00 | NUR ---
PHARMACY PROVIDED METHADONE CLINIC INFORMATION
--- NOTE | 2022-05-21 10:19 | NUR ---
PT W/C ASSISTED TO ER BED 7
[2022-05-21] MEDS: LACTULOSE 20 GM/30 ML UDC PO SCH ×3 (10:35→17:29)
--- NOTE | 2022-05-21 10:35 | NUR ---
REQUESTED METHADONE DOSE FROM PHARMACY
[2022-05-21] MEDS: METOPROLOL 25 MG TAB PO SCH ×2 (10:36→21:56)
[2022-05-21] MEDS: PANTOPRAZOLE 40 MG TABEC PO SCH ×2 (10:36→21:58)
[2022-05-21] MEDS ORDERED: CRUSHER, PILL MC ONE (11:01)
--- NOTE | 2022-05-21 11:53 | NUR ---
Patient was offered his lunch tray.
--- NOTE | 2022-05-21 12:52 | NUR ---
Patient is alert and verbally responsive. Patient has needs met by staff. Patient is taking medication as ordered. Will continue to monitor.
--- NOTE | 2022-05-21 13:16 | NUR ---
Patient needed to use the restroom. Timur offered and patient had a bowel movement.
[2022-05-21] MEDS ORDERED: HYDROXYZINE HYDROCHLORIDE 10 MG TAB PO PRN (14:35)
[2022-05-21] MEDS ORDERED: hydrOXYzine PAMOATE 25 MG CAP PO PRN (14:45)
--- NOTE | 2022-05-21 16:34 | NUR ---
PATIENT HAS BEEN SCREENED AND CATEGORIZED MODERATE NUTRITION RISK. PATIENT WILL BE SEEN WITHIN 3-5 DAYS OF ADMISSION. / PIPE ARORA RD
--- NOTE | 2022-05-21 17:38 | NUR ---
SPOKE WITH JUANITA FROM [facility] [place]. PER NURSE, SHE CALLED 911 FOR 5150 EVALUATION. SHE STATED THAT PT WAS FOUND WITH ALCOHOL, WAS ALTERED, AND BECAME AGGRESSIVE AND COMBATIVE WITH STAFF AND OTHER RESIDENTS TRYING TO HIT THEM. DENIED SI. PT WAS BEEN CALM AND COOPERATIVE WITH STAFF. DR FLORES MADE AWARE. DENIES HI/SI AT THIS TIME.
--- NOTE | 2022-05-21 18:58 | NUR ---
PATIENT WAS OFFERED DINNER TRAY. PATIENT IS SITTING UP ON BED EATING.
--- NOTE | 2022-05-21 19:28 | NUR ---
Pt report given to LORENZO Valdivia. Transfer of care at this time.
--- NOTE | 2022-05-21 20:00 | NUR ---
PT GIVEN WATER. PT ASKING FOR PAIN MEDS
--- NOTE | 2022-05-21 20:20 | NUR ---
PICC LINE NURSE AT BEDSIDE
[2022-05-21] MEDS ORDERED: ONDANSETRON 4 MG/2 ML VIAL IM/IVP PRN (22:55)
[2022-05-21] MEDS ORDERED: guaiFENesin DM 200/20 MG-10 ML 10 ML UDC PO PRN (22:55)
[2022-05-21] MEDS ORDERED: ZOLPIDEM 5 MG TAB PO PRN (22:55)
[2022-05-21] MEDS ORDERED: ACETAMINOPHEN 325 MG TAB PO PRN (22:55)
[2022-05-21] MEDS ORDERED: HYDROcodone/APAP 7.5/325 MG 1 TAB PO PRN (22:55)
[2022-05-21] MEDS ORDERED: POTASSIUM CHLORIDE 10 MEQ TABER PO PRN (22:55)
[2022-05-21] MEDS ORDERED: LORazepam 1 MG TAB ONE (23:03)
--- NOTE | 2022-05-21 23:11 | NUR ---
provided pt juice and a blanket
[2022-05-21] MEDS: METHADONE 10 MG TAB PO SCH (23:36)
[2022-05-21] MEDS: LEVOFLOXACIN 500 MG/D5W PREMIX 100 ML IV SCH (23:57)
--- NOTE | 2022-05-22 02:12 | NUR ---
pt resting in a side lying position pt watching tv on phone. x2 side rails up
--- NOTE | 2022-05-22 04:05 | NUR ---
pt watching tv in room. pt compain of pain will medicate with prn meds
[2022-05-22] MEDS: LORazepam 1 MG TAB PO PRN (05:05)
[2022-05-22] MEDS: MORPHINE SULFATE 2 MG/ML SYR IVP PRN ×2 (05:14→22:30)
--- NOTE | 2022-05-22 07:01 | NUR ---
pt states he wants a new bed. complains of pain in the rt hip
--- NOTE | 2022-05-22 07:24 | NUR ---
Pt report given to SUZY GUSTAFSON. Transfer of care at this time.
--- NOTE | 2022-05-22 07:25 | NUR ---
REPORT RECEIVED FROM BENJAMIN VENTURA, TRANSFER OF CARE AT THIS TIME, RECEIVED PT IN BED AWAKE, A/OX4, DECLINES ANY PAIN, PICC LINE IN THE RIGHT AC NOTED
[2022-05-22 07:27] LABS: BASOPHILS % (AUTO) 0.9 % (0.0-2.0); EOSINOPHILS # (AUTO) 0.1 K/uL (0-0.4); EOSINOPHILS % (AUTO) 3.3 % (0.0-4.0); HEMATOCRIT 30.6 % (36-52); HEMOGLOBIN 10.6 g/dL (12.0-18.0); LYMPHOCYTES # (AUTO) 0.6 K/uL (2.0-11.5); LYMPHOCYTES % (AUTO) 22.2 % (20.5-51.1); MEAN CORPUSCULAR HEMOGLOBIN 33 pg (27-31); MEAN CORPUSCULAR HGB CONC 35 g/dL (33-37); MEAN CORPUSCULAR VOLUME 93.5 fL (80-94); MONOCYTES # (AUTO) 0.3 K/uL (0.8-1.0); MONOCYTES % (AUTO) 10.9 % (1.7-9.3); NEUTROPHILS # (AUTO) 1.6 K/uL (1.8-7.7); NEUTROPHILS % (AUTO) 62.7 % (42.2-75.2); PLATELET COUNT (AUTO) 35 K/uL (140-450); RED BLOOD CELL COUNT(AUTO) 3.27 MIL/uL (4.20-6.10); RED CELL DISTRIBUTION WIDTH 15.8 % (11.6-13.7); WHITE BLOOD COUNT (AUTO) 2.5 K/uL (4.8-10.8)
[2022-05-22 07:45] LABS: ANION GAP 9.5 (8-16); CARBON DIOXIDE 28.4 mmol/L (21-32); CREATININE 0.6 mg/dL (0.6-1.3); POTASSIUM 3.9 mmol/L (3.5-5.1)
[2022-05-22] MEDS: FERROUS SULFATE 325 MG TABEC PO SCH (08:00)
--- NOTE | 2022-05-22 08:25 | NUR ---
Patient will be admitted to care of DR SIDNEY VICTORIA. Admited to TELEMETRY. Will go to room 125B. Belongings list completed. Report to GARY ALMONTE.
[2022-05-22 08:30] VITALS: BP 112/74
--- NOTE | 2022-05-22 08:30 | NUR ---
PATIENT RECEIVED FROM ED VIA GURNEY, BREATHING EFFORTLESSLY ON ROOM AIR. PICC LINE INTACT AT RIGHT ANTECUBITAL AREA. PATIENT ABLE TO TRANSFER FROM GURNEY TO BED WITH MINIMAL ASSISTANCE. IZZY LOWER EXTREMITIES EDEMATOUS WITH SCATTERED AREAS OF ULCERATION NOTED. AREA OF REDNESS BELOW LEFT UNDERARM APPEARS A SKIN TEAR. PATIENT VERBALIZES COMFORT AND CONCERN RE DIET. PATIENT EDUCATION AND SAFETY INITIATED AND PATIENT VERBALIZED UNDERSTANDING. CALL LIGHT PROVIDED TO PATIENT WITH INSTRUCTIONS/DEMONSTRATION RE USE--RETURN DEMONSTRATION PROVIDED BY PATIENT. PLAN OF CARE INITIATED.
--- NOTE | 2022-05-22 08:50 | NUR ---
SKIN TEAR AT PATIENT'S L SIDE BELOW AXILLA, 5 CM X 0.3 CM, PINK AND DRY. PATIENT REPORTED NOT BEING AWARE OF IT BEFORE. CLEANED WITH NS, PAT DRY, AND LEFT OPEN TO AIR. SCATTERED AREAS OF ULCERATION AT IZZY LOWER EXTREMITIES CLEANED LITA NS, PAT DRY AND LEFT OPEN TO AIR.
[2022-05-22] MEDS ORDERED: METHADONE 10 MG TAB PO SCH ×2 (09:00→17:15)
[2022-05-22] MEDS: LACTULOSE 20 GM/30 ML UDC PO SCH ×3 (09:00→17:57)
[2022-05-22] MEDS: METOPROLOL 25 MG TAB PO SCH ×2 (09:00→21:00)
[2022-05-22] MEDS: PANTOPRAZOLE 40 MG TABEC PO SCH ×2 (09:00→22:28)
[2022-05-22] MEDS: METHADONE 10 MG TAB PO SCH (09:00)
--- NOTE | 2022-05-22 09:05 | NUR ---
RECEIVED CALL FROM WALKER IN [facility]: PATIENT TO HAVE HIDA SCAN AT APPROX 1330 TODAY. PATIENT TO BE BE KEPT NPO AND NOT TO HAVE NARCOTIC MEDS PRIOR TO HIDA SCAN. PATIENT INFORMED.
--- NOTE | 2022-05-22 09:30 | NUR ---
DR FLORES INFORMED RE INFO FROM N[facility]LEAR MED, WHILE ON UNIT TO VISIT PATIENT. PER DR FLORES, OK TO HOLD PATIENT'S AM MEDICATIONS UNTIL AFTER HIDA SCAN.
--- NOTE | 2022-05-22 10:30 | NUR ---
MRSA SWAB OF NARES COLLECTED AND SENT TO LAB.
[2022-05-22 12:00] VITALS: BP 110/72
--- NOTE | 2022-05-22 12:00 | NUR ---
PATIENT REMAINS NPO AND IS REQUESTING TO EAT. REPORTS DRY MOUTH. ASSISTED WITH ORAL CARE
--- NOTE | 2022-05-22 13:30 | NUR ---
LEFT FOR HIDA SCAN.
[2022-05-22 16:00] VITALS: BP 129/66
--- NOTE | 2022-05-22 18:00 | NUR ---
HIDA SCAN NEGATIVE, PER REPORT. MISSED AM METHADONE ORDERED BY DR FLORES AND ADMIN ORDERED. PATIENT IS NOW ABLE TO EAT CARDIAC DIET, ORDERED.
--- NOTE | 2022-05-22 18:07 | NUR ---
P.T. NOTES P.T. EVAL COMPLETED; REFER TO EVAL FOR DETAILS.
--- NOTE | 2022-05-22 19:40 | NUR ---
PATIENT HAS EATEN AND VERBALIZES COMFORT. REPORTED TO KILN STOKER NURSE FOR CONTINUITY OF CARE.
[2022-05-22 20:00] VITALS: BP 116/53
[2022-05-22] MEDS: LEVOFLOXACIN 500 MG/D5W PREMIX 100 ML IV SCH (22:29)
[2022-05-22 23:57] LABS: APPEARANCE,URINE HAZY (CLEAR); BILIRUBIN,URINE 2+ (NEGATIVE); BLOOD, URINE 2+ (NEGATIVE); COLOR,URINE YELLOW (YELLOW); LEUKOCYTE ESTERASE ,URINE NEGATIVE (NEGATIVE); NITRITE, URINE NEGATIVE (NEGATIVE); PH,URINE 8.5 (5.0-9.0); UGLUCOSE NEGATIVE (NEGATIVE)
[2022-05-23 00:18] LABS: BARBITURATE, URINE NEGATIVE ng/ml (NEG <=200); BENZODIAZEPINE, URINE POSITIVE ng/mL (NEG <=200); CANNABINOID, URINE NEGATIVE ng/mL (NEG <=50); COCAINE, URINE NEGATIVE ng/mL (NEG <=300); PHENCYCLIDINE SCREEN,URINE NEGATIVE ng/mL (NEG <=25)
[2022-05-23 00:19] LABS: OPIATE, URINE POSITIVE ng/mL (NEG <=2000)
[2022-05-23 00:25] LABS: RBC,URINE 0-5 /HPF (0-5); WBC,URINE 0-5 /HPF (0-5)
[2022-05-23] MEDS: LORazepam 1 MG TAB PO PRN ×3 (01:00→22:17)
[2022-05-23 01:17] VITALS: BP 112/60
[2022-05-23 04:00] VITALS: BP 105/73
[2022-05-23] MEDS: MORPHINE SULFATE 2 MG/ML SYR IVP PRN ×2 (04:37→17:11)
[2022-05-23 06:35] LABS: ANION GAP 11.2 (8-16); CREATININE 0.7 mg/dL (0.6-1.3); POTASSIUM 4.2 mmol/L (3.5-5.1)
[2022-05-23 06:44] LABS: EOSINOPHILS # (AUTO) 0.1 K/uL (0-0.4); EOSINOPHILS % (AUTO) 4.4 % (0.0-4.0); HEMATOCRIT 30.4 % (36-52); HEMOGLOBIN 10.6 g/dL (12.0-18.0); LYMPHOCYTES # (AUTO) 0.5 K/uL (2.0-11.5); LYMPHOCYTES % (AUTO) 19.5 % (20.5-51.1); MEAN CORPUSCULAR HEMOGLOBIN 33 pg (27-31); MEAN CORPUSCULAR HGB CONC 35 g/dL (33-37); MONOCYTES # (AUTO) 0.3 K/uL (0.8-1.0); MONOCYTES % (AUTO) 9.6 % (1.7-9.3); NEUTROPHILS # (AUTO) 1.7 K/uL (1.8-7.7); NEUTROPHILS % (AUTO) 65.5 % (42.2-75.2); RED BLOOD CELL COUNT(AUTO) 3.27 MIL/uL (4.20-6.10); RED CELL DISTRIBUTION WIDTH 16.2 % (11.6-13.7); WHITE BLOOD COUNT (AUTO) 2.7 K/uL (4.8-10.8)
[2022-05-23 06:54] LABS: PLATELET COUNT (AUTO) 34 K/uL (140-450)
--- NOTE | 2022-05-23 07:30 | NUR ---
RECEIVED BEDSIDE REPORT FROM CLAMPER NURSE FOR CONTINUOUS OF CARE, PT RESTING, NO DISTRESS NOTED, AWAKE ALERT ABLE TO LET NEEDS KNOWN. MIDLINE TO RIGHT UPPER ARM, PATENT INTACT, SL. PT ON ROOM AIR, NO SOB NOTED, INITIAL ASSESSMENT DONE, ALL SAFETY PRECAUTION MET, CALL LIGHT WITHIN REACH, WILL CONTINUE TO MONITOR.
[2022-05-23 08:00] VITALS: BP 116/63
[2022-05-23] MEDS: FERROUS SULFATE 325 MG TABEC PO SCH (08:43)
[2022-05-23] MEDS: PANTOPRAZOLE 40 MG TABEC PO SCH ×2 (08:44→21:16)
[2022-05-23] MEDS: METHADONE 10 MG TAB PO SCH (08:44)
[2022-05-23] MEDS: LACTULOSE 20 GM/30 ML UDC PO SCH ×3 (08:44→17:11)
[2022-05-23] MEDS: METOPROLOL 25 MG TAB PO SCH ×2 (08:45→21:16)
--- NOTE | 2022-05-23 08:55 | NUR ---
DC PLANNING: ORDER RECEIVED FOR MRCP SECONDARY TO ELEVATED LIVER ENZYMES, REFERRAL FAXED TO [facility] AFTER CONFIRMING THAT [place] IS UNABLE TO ACCOMMODATE HIS WEIGHT IT EXCEED THEIR TABLE LIMIT. AMAIRANI WILL FOLLOW. Addendum: 05/23/22 at 1337 by Radha Wilson CM DC PLANNING: AMAIRANI SPOKE WITH THE PATIENT AT BEDSIDE AND ENDORSED PLAN FOR MRCP. THE PATIENT RESIDES [place] [facility], STATES HE IS NOT WALKING VERY MUCH BECAUSE OF LE EDEMA AND THAT HE IS USUALLY IN A WC DURING THE DAY. HE WILL RETURN TO [facility] WHEN CLINICALLY STABLE. AMAIRANI HAS BEEN ATTEMPTING TO F/U WITH [facility] REGARDING THE MRCP BUT HAS BEEN UNABLE TO REACH THE TRANSFER CENTER THEY ARE AWAY FROM THEIR UNIT AT THIS TIME. AMAIRANI WILL FOLLOW. Addendum: 05/23/22 at 1507 by Radha Wilson CM DC PLANNING: AMAIRANI SPOKE WITH IRIS AT [facility] REGARDING MRCP, REQUEST IS BEING PROCESSED. TRANSPORT WITH [facility] WILL NEED TO BE ARRANGED ONCE PROCEDURE IS CONFIRMED, . NUMBER FOR MST GIVEN TO [facility] CONTACT IF CM IS GONE FOR THE DAY. CM WILL FOLLOW. Addendum: 05/23/22 at 1553 by Radha Wilson DC PLANNING: PATIENT DECLINED BY FABIANA RAYA MD FEELS PATIENT DOESN'T NEED MRCP. CM SPOKE WITH DR HINTON, HE STATES THE PATIENT NO LONGER NEEDS IT AND WILL GET A CT ABDOMEN. POSSIBLE DC TO [facility] THIS . CM WILL FOLLOW. Addendum: 05/23/22 at 1632 by Radha Wilson DC PLANNING: REFERRAL FAXED TO [facility] IN [place] OF POSSIBLE DC THIS WEEKEND. FOR TRANSPORT CALL [facility] AT [phone]. CM WILL FOLLOW. Addendum: 05/26/22 at 0857 by Radha Wilson CM DC PLANNING: PATIENT ACCEPTED TO [facility], ROOM 45 C, DR HINTON TO FOLLOW. NURSING TO CALL REPORT, TRANSPORT ARRANGED BY THE HEARING IMPAIRED TEACHER THROUGH [facility], HEARING IMPAIRED TEACHER STATES THAT THE PATIENT WILL BE PICKED UP BY [facility] AT 9:00 AM TODAY. AMAIRANI WILL FOLLOW.
--- NOTE | 2022-05-23 09:47 | NUR ---
DUE MEDICATIONS ADMINISTERED, PT TOLERATED WELL, WILL CONTINUE TO MONITOR.
--- NOTE | 2022-05-23 11:17 | NUR ---
PT C/O ANXIETY, ATIVAN GIVEN PER DR ORDER, WILL CONTINUE TO MONITOR.
[2022-05-23 12:00] VITALS: BP 120/60
--- NOTE | 2022-05-23 13:41 | NUR ---
FAXED DR HINTON CONSENT FOR CT, AWAITING FOR TO FAX BACK.
[2022-05-23 16:00] VITALS: BP 109/59
--- NOTE | 2022-05-23 17:11 | NUR ---
PT CAME BACK FROM CT, STATED FEELING PAIN, MEDICATION ADMINISTERED, PT TOLERATED WELL, WILL CONTINUE TO MONITOR.
--- NOTE | 2022-05-23 19:13 | NUR ---
ENDORSED PT TO SENIOR GRANT WRITER NURSE FOR CONTINUOUS OF CARE.
--- NOTE | 2022-05-23 19:20 | NUR ---
Received report from morning nurse. Patient sitting on bed with breathing even and unlabored. Patient alert and oriented, no complaints at this time. Will continue to monitor patient.
[2022-05-23 20:00] VITALS: BP 113/66
--- NOTE | 2022-05-23 22:20 | NUR ---
PATIENT COMPLAINED OF ANXIETY. ATIVAN GIVEN ORDERED. WILL CONTINUE TO MONITOR.
[2022-05-23] MEDS: LEVOFLOXACIN 500 MG/D5W PREMIX 100 ML IV SCH (22:24)
[2022-05-24] VITALS: BP 109/66
[2022-05-24] MEDS: MORPHINE SULFATE 2 MG/ML SYR IVP PRN ×2 (00:05→13:22)
--- NOTE | 2022-05-24 00:10 | NUR ---
PATIENT GIVEN MORPHINE FOR COMPLAINT OF HIP PAIN. WILL RE-ASSESS FOR MED RESPONSE.
--- NOTE | 2022-05-24 01:30 | NUR ---
PATIENT RESTING ON BED WITH EYES CLOSED. APPEARS COMFORTABLE. CALL LIGHT WITHIN REACH.
[2022-05-24 04:00] VITALS: BP 109/59
--- NOTE | 2022-05-24 06:00 | NUR ---
BLOOD DRAWN FROM PICC LINE FOR LABS. PICC LINE FLUSHED . ASEPTIC TECHNIQUE MAINTAINED.
[2022-05-24 07:04] LABS: ANION GAP 11.1 (8-16); CARBON DIOXIDE 26.9 mmol/L (21-32); CREATININE 0.7 mg/dL (0.6-1.3)
--- NOTE | 2022-05-24 07:08 | NUR ---
PATIENT HAS BEEN SCREENED AND CATEGORIZED MODERATE NUTRITION RISK. PATIENT WILL BE SEEN WITHIN 3-5 DAYS OF ADMISSION. 05/26/22-05/28/22 EARNESTINE ALBRIGHT MS, RDN
--- NOTE | 2022-05-24 07:18 | NUR ---
PATIENT ENDORSED TO MORNING SHIFT RN. PATIENT RESTING ON BED WITH NO COMPLAINTS.
[2022-05-24 07:22] LABS: HEMATOCRIT 29.2 % (36-52); HEMOGLOBIN 10.2 g/dL (12.0-18.0); MEAN CORPUSCULAR HEMOGLOBIN 33 pg (27-31); MEAN CORPUSCULAR HGB CONC 35 g/dL (33-37); MEAN CORPUSCULAR VOLUME 93.6 fL (80-94); RED BLOOD CELL COUNT(AUTO) 3.12 MIL/uL (4.20-6.10); RED CELL DISTRIBUTION WIDTH 15.8 % (11.6-13.7); WHITE BLOOD COUNT (AUTO) 2.8 K/uL (4.8-10.8)
--- NOTE | 2022-05-24 07:30 | NUR ---
RECEIVED BEDSIDE REPORT FROM ARCHITECTURAL ADMINISTRATIVE ASSISTANT NURSE, PT RESTING, NO DISTRESS NOTED, MIDLINE TO RIGHT UPPER ARM, PATENT INTACT, SL. PT ON ROOM AIR, NO SOB NOTED. INITIAL ASSESSMENT DONE, ALL SAFETY PRECAUTION MET, CALL LIGHT WITHIN REACH, WILL CONTINUE TO MONITOR;
[2022-05-24 08:00] VITALS: BP 112/54
--- NOTE | 2022-05-24 08:26 | NUR ---
DUE MEDICATIONS ADMINISTERED,PT TOLERATED WELL. WILL CONTINUE TO MONITOR.
[2022-05-24] MEDS: METOPROLOL 25 MG TAB PO SCH ×2 (08:27→21:00)
[2022-05-24] MEDS: LACTULOSE 20 GM/30 ML UDC PO SCH ×3 (08:27→16:30)
[2022-05-24] MEDS: PANTOPRAZOLE 40 MG TABEC PO SCH ×2 (08:27→22:10)
[2022-05-24] MEDS: METHADONE 10 MG TAB PO SCH (08:28)
[2022-05-24] MEDS: FERROUS SULFATE 325 MG TABEC PO SCH (08:28)
[2022-05-24 10:11] LABS: PLATELET COUNT (AUTO) 36 K/uL (140-450)
--- NOTE | 2022-05-24 11:01 | NUR ---
(05/24/22) RD INITIAL ASSESSMENT COMPLETED PLEASE REFER TO NUTRITION ASSESSMENT UNDER CARE ACTIVITY FOR ESTIMATED NUTRITIONAL NEEDS. RD RECOMMENDATIONS: 1. CONTINUE CARDIAC DIET TOLERATED. 2. CONSULT RDN PRN. 3. RD WILL F/U 3-5 DAYS; MODERATE RISK. EARNESTINE ALBRIGHT MS, RDN
[2022-05-24 12:00] VITALS: BP 120/60
--- NOTE | 2022-05-24 13:22 | NUR ---
PT C/O PAIN, MEDICATION ORDERED GIVEN, WILL CONTINUE TO MONITOR.
[2022-05-24 16:00] VITALS: BP 109/59
[2022-05-24] MEDS: LORazepam 1 MG TAB PO PRN ×2 (16:30→23:23)
--- NOTE | 2022-05-24 16:30 | NUR ---
PT C/O ANXIETY, MEDICATION GIVEN PER DR ORDER, WILL CONTINUE TO MONITOR.
--- NOTE | 2022-05-24 19:30 | NUR ---
GIVEN BEDSIDE REPORT TO MEDICAL INSURANCE BILLER NURSE FOR CONTINUITY OF CARE
[2022-05-24 20:00] VITALS: BP 100/56
[2022-05-24] MEDS: LEVOFLOXACIN 500 MG/D5W PREMIX 100 ML IV SCH (23:00)
[2022-05-25] VITALS (8 sets, daily range): BP systolic 108–117; BP diastolic 58–66
--- NOTE | 2022-05-25 01:01 | NUR ---
PATIENT AWAKE WITH NO C/O LUNGS CLEAR SAT 98 % ON ROOM AIR B/P 100/ 56 HELD LOPRESSOR 25 MG AT 2100 AND GIVEN PROTONIX 40 MG PATIENT RECEIVED LEVAQUIN 500 MG IVPB 2300 SINUS ON MONITOR AT 0100 PATIENT C/O OF PAIN AT RIGHT LOWER SIDE OF ABDOMEN 05/18 GIVEN MORPHINE 2MG IVP AT 0100.
[2022-05-25] MEDS: MORPHINE SULFATE 2 MG/ML SYR IVP PRN (01:15)
[2022-05-25 06:19] LABS: BASOPHILS % (AUTO) 0.3 % (0.0-2.0); EOSINOPHILS # (AUTO) 0.1 K/uL (0-0.4); EOSINOPHILS % (AUTO) 5.2 % (0.0-4.0); HEMATOCRIT 29.8 % (36-52); HEMOGLOBIN 10.3 g/dL (12.0-18.0); LYMPHOCYTES # (AUTO) 0.5 K/uL (2.0-11.5); MEAN CORPUSCULAR HEMOGLOBIN 32 pg (27-31); MEAN CORPUSCULAR HGB CONC 35 g/dL (33-37); MEAN CORPUSCULAR VOLUME 93.3 fL (80-94); MONOCYTES # (AUTO) 0.3 K/uL (0.8-1.0); MONOCYTES % (AUTO) 10.3 % (1.7-9.3); NEUTROPHILS # (AUTO) 1.8 K/uL (1.8-7.7); NEUTROPHILS % (AUTO) 65.2 % (42.2-75.2); PLATELET COUNT (AUTO) 38 K/uL (140-450); RED BLOOD CELL COUNT(AUTO) 3.19 MIL/uL (4.20-6.10); WHITE BLOOD COUNT (AUTO) 2.7 K/uL (4.8-10.8)
[2022-05-25 06:31] LABS: ANION GAP 11.9 (8-16); CARBON DIOXIDE 26.2 mmol/L (21-32); CREATININE 0.7 mg/dL (0.6-1.3); POTASSIUM 4.1 mmol/L (3.5-5.1)
--- NOTE | 2022-05-25 07:28 | NUR ---
RECEIVED REPORT FROM ELECTRICAL TIMING DEVICE CALIBRATOR NURSEQUANG: PT IN BED BREATHING EFFORTLESSLY ON ROOM AIR. RIGHT UPPER ARM 2-LUMEN PICC LINE INTACT. PT VERBALIZES COMFORT AND DENIES PAIN. CALL LIGHT IS WITHIN REACH.
[2022-05-25] MEDS: FERROUS SULFATE 325 MG TABEC PO SCH (08:57)
[2022-05-25] MEDS: LACTULOSE 20 GM/30 ML UDC PO SCH ×3 (08:58→17:54)
[2022-05-25] MEDS: PANTOPRAZOLE 40 MG TABEC PO SCH ×2 (08:59→21:00)
[2022-05-25] MEDS: METOPROLOL 25 MG TAB PO SCH ×2 (09:16→21:00)
[2022-05-25] MEDS: METHADONE 10 MG TAB PO SCH (09:16)
--- NOTE | 2022-05-25 10:00 | NUR ---
ALL AM MEDS ADMIN ORDERED.
[2022-05-25] MEDS ORDERED: LEVO750T51 PO (11:23)
[2022-05-25] MEDS: LORazepam 1 MG TAB PO PRN (14:24)
--- NOTE | 2022-05-25 14:25 | NUR ---
PT REPORTED FEELING "ANXIOUS"--ATIVAN ADMIN ORDERED.
--- NOTE | 2022-05-25 15:20 | NUR ---
PT ASLEEP SINCE SHORTLY AFTER ATIVAN ADMIN.
--- NOTE | 2022-05-25 20:15 | NUR ---
PT FOR DISCHARGE BACK TO SNF. DISCHARGE INITIATED AND PRINTED INFO IN FOLDER IN PT'S CHART. REPORT PROVIDED TO NIGHT NURSE, QUANG. PER QUANG, IT HAS BEEN COMMUNICATED THAT PT'S DISCHARGE WILL BE DELAYED UNTIL TOMORROW. PATIENT HAS BEEN MADE AWARE. PT VERBALIZED COMFORT AND DENIED PAIN.
[2022-05-25] MEDS: LEVOFLOXACIN 500 MG/D5W PREMIX 100 ML IV SCH (23:00)
[2022-05-26] VITALS: BP 110/65
[2022-05-26] MEDS: LORazepam 1 MG TAB PO PRN (00:23)
--- NOTE | 2022-05-26 01:59 | NUR ---
PATIENT AWAKE ALERT RESTING IN BED SINUS ON MONITOR TEMP 98.5 ON ROOM AIR SAT 98%. NO C/O OF PAIN PATIENT ASK FOR ATIVAN SATES HES RESTLESS GIVEN TO HIM 0025. HUNG LEVAGUIN 500 MG IVPB. PATIENT HAS A RIGHT UPPER ARM MID LINE NO DISTRESS.
[2022-05-26 04:00] VITALS: BP 111/68
[2022-05-26 05:39] LABS: ANION GAP 11.3 (8-16); CARBON DIOXIDE 26.9 mmol/L (21-32); CREATININE 0.7 mg/dL (0.6-1.3); POTASSIUM 4.2 mmol/L (3.5-5.1)
[2022-05-26 05:54] LABS: BASOPHILS % (AUTO) 0.5 % (0.0-2.0); EOSINOPHILS # (AUTO) 0.2 K/uL (0-0.4); EOSINOPHILS % (AUTO) 4.9 % (0.0-4.0); HEMATOCRIT 30.7 % (36-52); HEMOGLOBIN 10.8 g/dL (12.0-18.0); LYMPHOCYTES # (AUTO) 0.5 K/uL (2.0-11.5); LYMPHOCYTES % (AUTO) 16.8 % (20.5-51.1); MEAN CORPUSCULAR HEMOGLOBIN 33 pg (27-31); MEAN CORPUSCULAR HGB CONC 35 g/dL (33-37); MEAN CORPUSCULAR VOLUME 93.1 fL (80-94); MONOCYTES # (AUTO) 0.3 K/uL (0.8-1.0); NEUTROPHILS # (AUTO) 2.1 K/uL (1.8-7.7); NEUTROPHILS % (AUTO) 68.8 % (42.2-75.2); PLATELET COUNT (AUTO) 37 K/uL (140-450); RED CELL DISTRIBUTION WIDTH 16.2 % (11.6-13.7); WHITE BLOOD COUNT (AUTO) 3.1 K/uL (4.8-10.8)
--- NOTE | 2022-05-26 07:15 | NUR ---
RECEIVED REPORT FROM SHAKILA SHAY FOR CONTINUITY CARE. PER REPORT WILL BE DISCHARGE [place] [facility] [place] AROUND 0830. PT IS ALERT AND ORIENTED X4, NO DISTRESS NOTED. ALL SAFETY MEASURE IN PLACE, CALL LIGHT WITHIN REACH, WILL CONTINUE TO MONITOR.
--- NOTE | 2022-05-26 08:13 | NUR ---
CALLED [facility] TO GIVE REPORT FOR PTS RETURN, GAME DESIGN INSTRUCTOR STATED SHE CAN NOT ACCEPT THE PT AND NEED TO CALL CASE MANAGEMENT. PAT NOTIFIED OF [facility] RESPONSE, STATES SHE WILL CALL [facility] AND GET TRANSFER SORTED OUT.
--- NOTE | 2022-05-26 08:57 | NUR ---
FULL REPORT GIVEN TO SUZY POLLOCK FROM [facility] [place] FOR [place]TS RETURN. ALL QUESTIONS HAVE BEEN ANSWERED AND POC DISCUSSED.
--- NOTE | 2022-05-26 09:15 | NUR ---
UPPER RIGHT ARM MIDLINE REMOVED, CATH IN PLACE. 4X4 APPLIED WITH PRESSURE. PT TOLERATED REMOVAL. PT CHANGED INTO PERSONNEL CLOTHES. PT HAS ALL BELONGINGS AND REPORTS ALL NEEDS HAVE BEEN MET THROUGHOUT HOSPITAL STAY. DISCHARGE BELONGINGS IN POSSESSION. PT STABLE.
--- NOTE | 2022-05-26 09:20 | NUR ---
PT DISCHARGED TO [facility] [place] [facility]. PT IS ALERT AND ORIENTED, RESPIRATION EVEN, UNLABORED, NO DISTRESS. MIDLINE REMOVED. DISCHARGE INSTRUCTION AND MEDICATION INSTRUCTION PACKAGE GIVEN TO PT. PT DISCHARGED WITHOUT ANY DISTRESS.
== END 2022-05-26 09:25 | disposition home or self-care (01) | DRG 441 ==
LOC: MED 21:31 → MTU 05-21 06:07 → MMU 05-22 04:38
PROVIDERS: ADMIT Hospitalist; ATTEND Hospitalist
PROC: 05HY33Z Insertion of Infusion Device into Upper Vein, Percutaneous Approach (ICD-10-PCS; principal; 2022-05-21)
PROC: B54MZZA Ultrasonography of Right Upper Extremity Veins, Guidance (ICD-10-PCS; 2022-05-21)
DX: K72.90 Hepatic failure, unspecified without coma (principal); G93.41 Metabolic encephalopathy; K80.10 Calculus of gallbladder with chronic cholecystitis without obstruction; Z68.41 Body mass index [BMI] 40.0-44.9, adult; K21.9 Gastro-esophageal reflux disease without esophagitis; E80.6 Other disorders of bilirubin metabolism; R74.01 Elevation of levels of liver transaminase levels; E11.9 Type 2 diabetes mellitus without complications; F11.10 Opioid abuse, uncomplicated; E66.9 Obesity, unspecified; K74.60 Unspecified cirrhosis of liver; E11.51 Type 2 diabetes mellitus with diabetic peripheral angiopathy without gangrene; Z20.822 Contact with and (suspected) exposure to COVID-19; Z87.891 Personal history of nicotine dependence; Z79.1 Long term (current) use of non-steroidal anti-inflammatories (NSAID); Z79.899 Other long term (current) drug therapy
CPT/HCPCS: 36415; 71045; 73502; 76705; 78445; 80048; 80053; 80305; 81001; 82140; 83880; 84484; 85025; 87081; 93005; 96365; 97110; 97112; 97116; 97530; 99285; A9510; J1940; J1956; J2270; Q0092; Q0177; Q9967

== ENCOUNTER 2022-09-02 09:10 | Inpatient (IN) | payer OTHER, MEDICAID ==
[~2022-09-02] VITALS: Ht 177.8 cm; Wt 134.3 kg
[2022-09-02 09:10] VITALS: BP 123/71
[~2022-09-02 09:10] MED LIST changes: +FURO-572 PO; +LEVO750T75 PO; -PIPE1SOL IV
--- NOTE | 2022-09-02 09:10 | NUR ---
BIBA BLS TO ER BED 2
--- NOTE | 2022-09-02 09:15 | NUR ---
52 y/o M BIBA from [facility] [place] for elevated ammonia and dysuria x 4 days. Patient A&Ox4, ambulatory, states dysuria x 4 days currently on ABX. States received blood work yesterday showing elevated ammonia. Paperwork noted with Mg 1.8 drawn 09/01/22. Last ammonia draw 08/11 137. Red/bluish discoloration noted to lower extremities; normal to self. Pt placed onto cafeteria monitor and gown. Bed locked in lowest position, side rails x 1. PMH: heart failure, anxiety, PVD/PAD, hepatic encephalopathy, GERD, anemia, substance abuse Meds: lasix, metoprolol, methadone, rifaximin, ativan, trazodone, dulcolax, lactulose, pantoprazole, ferrous sulfate, colace, vitamin C, melatonin NKDA
--- NOTE | 2022-09-02 10:50 | NUR ---
Lab at bedside
--- NOTE | 2022-09-02 10:59 | NUR ---
Urine UDS/UA handed to CPT Syd at ER bedside
[2022-09-02] MEDS ORDERED: BISA-213 RC (11:09)
[2022-09-02] MEDS ORDERED: MELA5SGL PO (11:09)
[2022-09-02] MEDS ORDERED: ATI.5 PO (11:09)
[2022-09-02] MEDS ORDERED: RIFA550T PO (11:09)
[2022-09-02] MEDS ORDERED: TRAZ-343 PO (11:09)
[2022-09-02] MEDS ORDERED: ASCO500T95 PO (11:09)
[2022-09-02] MEDS ORDERED: MAGN400S60 PO (11:09)
[2022-09-02] MEDS ORDERED: FURO-570 PO (11:11)
[2022-09-02] MEDS ORDERED: METH-1550 PO (11:15)
[2022-09-02 11:33] LABS: APPEARANCE,URINE HAZY (CLEAR); BILIRUBIN,URINE NEGATIVE (NEGATIVE); BLOOD, URINE 2+ (NEGATIVE); COLOR,URINE YELLOW (YELLOW); LEUKOCYTE ESTERASE ,URINE 2+ (NEGATIVE); NITRITE, URINE NEGATIVE (NEGATIVE); UGLUCOSE NEGATIVE (NEGATIVE)
[2022-09-02 11:40] LABS: BASOPHILS % (AUTO) 0.8 % (0.0-2.0); EOSINOPHILS # (AUTO) 0.1 K/uL (0-0.4); EOSINOPHILS % (AUTO) 4.2 % (0.0-4.0); HEMATOCRIT 33.2 % (36-52); HEMOGLOBIN 11.6 g/dL (12.0-18.0); LYMPHOCYTES # (AUTO) 0.5 K/uL (2.0-11.5); LYMPHOCYTES % (AUTO) 16.3 % (20.5-51.1); MEAN CORPUSCULAR HEMOGLOBIN 33 pg (27-31); MEAN CORPUSCULAR HGB CONC 35 g/dL (33-37); MEAN CORPUSCULAR VOLUME 94.1 fL (80-94); MONOCYTES # (AUTO) 0.4 K/uL (0.8-1.0); MONOCYTES % (AUTO) 14.9 % (1.7-9.3); NEUTROPHILS # (AUTO) 1.8 K/uL (1.8-7.7); NEUTROPHILS % (AUTO) 63.8 % (42.2-75.2); PLATELET COUNT (AUTO) 36 K/uL (140-450); RED BLOOD CELL COUNT(AUTO) 3.53 MIL/uL (4.20-6.10); RED CELL DISTRIBUTION WIDTH 16.4 % (11.6-13.7); WHITE BLOOD COUNT (AUTO) 2.8 K/uL (4.8-10.8)
[2022-09-02 11:46] LABS: PROTHROMBIN TIME 12.6 secs (10.8-13.4)
[2022-09-02 11:57] LABS: URINE AMORPHOUS URATE 1+ /HPF (None Seen)
[2022-09-02 11:58] LABS: BARBITURATE, URINE NEGATIVE ng/ml (NEG <=200); BENZODIAZEPINE, URINE POSITIVE ng/mL (NEG <=200); CANNABINOID, URINE NEGATIVE ng/mL (NEG <=50); COCAINE, URINE NEGATIVE ng/mL (NEG <=300); OPIATE, URINE NEGATIVE ng/mL (NEG <=2000); PHENCYCLIDINE SCREEN,URINE NEGATIVE ng/mL (NEG <=25)
[2022-09-02 12:06] LABS: ALBUMIN 2.5 g/dL (3.4-5.0); ANION GAP 10.7 (8-16); CARBON DIOXIDE 27.9 mmol/L (21-32); CREATININE 0.7 mg/dL (0.6-1.3); POTASSIUM 3.6 mmol/L (3.5-5.1); TOTAL BILIRUBIN 1.8 mg/dL (0.0-1.0)
[2022-09-02] MEDS ORDERED: LACTULOSE 20 GM/30 ML UDC PO ONE (13:40)
[2022-09-02] MEDS ORDERED: cefTRIAXone 1,000 MG VIAL ONE (13:43)
--- NOTE | 2022-09-02 14:14 | NUR ---
Patient resting in position of comfort. structural engineer in place. Urinal at bedside. Denies pain at this time. All pt needs met.
[2022-09-02] MEDS ORDERED: ACETAMINOPHEN 325 MG TAB PO PRN (15:20)
[2022-09-02] MEDS ORDERED: DOCUSATE SODIUM 100 MG GELCAP PO PRN (15:20)
[2022-09-02] MEDS ORDERED: MAG SULF 2000 MG/WATER PREMIX 50 ML IV PRN (15:20)
[2022-09-02] MEDS ORDERED: LORazepam 2 MG/ML VIAL IVP PRN (15:20)
[2022-09-02] MEDS ORDERED: ONDANSETRON 4 MG/2 ML VIAL IVP PRN (15:20)
[2022-09-02] MEDS ORDERED: POTASSIUM CHLORIDE 10 MEQ TABER PO PRN (15:20)
[2022-09-02] MEDS ORDERED: ZOLPIDEM 10 MG TAB PO PRN (15:20)
[2022-09-02] MEDS ORDERED: MORPHINE SULFATE 2 MG/ML SYR IVP PRN (15:20)
--- NOTE | 2022-09-02 15:20 | NUR ---
Patient will be admitted to care of Dr. Canales. Admitted to M/S. Will go to room 124A. Belongings list completed. Report to SUZY Santiago.
--- NOTE | 2022-09-02 15:50 | NUR ---
PT ARRIVED IN THE UNIT FROM ER , GOT REPORT FROM THE ER NURSE, Vic OBTAINED ASSESSMENT IS DONE. PT STABLE.[id number]
[2022-09-02 17:13] VITALS: BP 126/65
[2022-09-02] MEDS: LACTULOSE 20 GM/30 ML UDC PO SCH (17:43)
--- NOTE | 2022-09-02 19:30 | NUR ---
Patient's Plan of Care was discussed and reviewed with LORENZO CHERY
--- NOTE | 2022-09-02 19:44 | NUR ---
RECEIVED SHIFT ENDORSEMENT FROM GALA ALMONTE, PATIENT WAS STABLE DURING SHIFT REPORT. PATIENT WAS IN BED ASLEEP. PATIENT WAS EASILY AROUSED BY CALLING HIS NAME. PATIENT DENIED ANY PAIN/DISCOMFORT AT THIS TIME. PATIENT UNDERSTANDS WHY HE IS IN THE HOSPITAL IN HIS OWN WORDS. NO NOTED RESPIRATORY DISTRESS. PATIENT HAS TWO SIDE RAILS UP FOR SAFETY AND ADJUSTMENTS. PATIENT WAS ABLE TO EAT HIS DINNER BUT IT WAS TAKEN TOO SOON SO SNACK WAS GIVEN TO REPLACE THE INTAKE. CALL LIGHT IS WITHIN REACH FOR ALL ASSISTANCE. [email or web address]
[2022-09-02 20:00] VITALS: BP 126/54
[2022-09-02] MEDS: traZODone 50 MG TAB PO SCH (21:32)
[2022-09-02] MEDS: PANTOPRAZOLE 40 MG TABEC PO SCH (21:33)
[2022-09-02] MEDS: METOPROLOL 25 MG TAB PO SCH (21:33)
[2022-09-02] MEDS: RIFAXIMIN 550 MG TAB PO SCH (21:33)
--- NOTE | 2022-09-02 21:50 | NUR ---
PATIENT WAS ABLE TO TAKE MEDICATION WITHOUT INCIDENT. PATIENT DENIES ANY PAIN/DISCOMFORT. NO NOTED RESPIRATORY DISTRESS. PATIENT REQUEST DOOR TO BE CLOSED BECAUSE NEIGHBORING PATIENT YELLING. NURSING AGREED. NURSING WILL CHECK ON PATIENT UPON REQUEST AND DOORWAY CHECK. CALL LIGHT WITHIN REACH PATIENT AWARE HOW TO USE IT. [email or web address]
--- NOTE | 2022-09-03 01:45 | NUR ---
NURSING NOTED PATIENT IN BED WATCHING TV. PATIENT CLAIMS THAT HE SLEEPS ALL DAY SO IS NOT SLEEPING DURING THE NIGHT. NURSING OFFERED A SLEEPING PRN BUT DECLINED. NO NOTED S/S OF PAIN/DISTRESS. NO NOTED S/S OF RESPIRATORY DISTRESS. CALL LIGHT WITHIN REACH. SIDE RAILS UP X 2 FOR SAFETY AND COMFORT. [email or web address]
--- NOTE | 2022-09-03 03:28 | NUR ---
PATIENT UP WATCHING TV NO COMPLAINTS OF PAIN.DISCOMFORT. PATIENT DENIES AND RESPIRATORY DISTRESS. PATIENT STATED HE NEEDS METHADONE BUT WILL WAIT UNTIL HE LEAVES. SIDE RAILS UP X 2 FOR COMFORT AND ADJUSTMENTS. CALL LIGHT WITHIN REACH. [email or web address]
[2022-09-03 04:00] VITALS: BP 102/56
--- NOTE | 2022-09-03 05:18 | NUR ---
PATIENT WAS ABLE TO SLEEP. NO NOTED S/S OF PAIN/DISCOMFORT. NO NOTED RESPIRATORY DISTRESS. PATIENT WAS ABLE TO VERBALIZE THERE ARE NEEDS AT THIS TIME. CALL LIGHT WITHIN REACH. SIDE RAILS UP X 2. [email or web address]
[2022-09-03 05:25] LABS: BASOPHILS % (AUTO) 0.2 % (0.0-2.0); EOSINOPHILS # (AUTO) 0.1 K/uL (0-0.4); EOSINOPHILS % (AUTO) 1.9 % (0.0-4.0); HEMOGLOBIN 11.9 g/dL (12.0-18.0); LYMPHOCYTES # (AUTO) 0.5 K/uL (2.0-11.5); LYMPHOCYTES % (AUTO) 14.1 % (20.5-51.1); MEAN CORPUSCULAR HEMOGLOBIN 33 pg (27-31); MEAN CORPUSCULAR HGB CONC 35 g/dL (33-37); MEAN CORPUSCULAR VOLUME 94.4 fL (80-94); MONOCYTES # (AUTO) 0.5 K/uL (0.8-1.0); NEUTROPHILS # (AUTO) 2.5 K/uL (1.8-7.7); NEUTROPHILS % (AUTO) 69.8 % (42.2-75.2); PLATELET COUNT (AUTO) 36 K/uL (140-450); RED CELL DISTRIBUTION WIDTH 16.3 % (11.6-13.7); WHITE BLOOD COUNT (AUTO) 3.7 K/uL (4.8-10.8)
[2022-09-03 06:12] LABS: ANION GAP 12.7 (8-16); CARBON DIOXIDE 25.2 mmol/L (21-32); CREATININE 0.8 mg/dL (0.6-1.3); POTASSIUM 3.9 mmol/L (3.5-5.1)
--- NOTE | 2022-09-03 07:22 | NUR ---
ENDORSED PATIENT TO RODNEY VENTURA FOR CONTINUITY OF CARE, PATIENT WAS STABLE DURING SHIFT CHANGE. [email or web address]
--- NOTE | 2022-09-03 07:23 | NUR ---
RECEIVED REPORT FROM RN CARE MANAGER NURSE FOR CONTINUITY OF CARE. PT IN BED AWAKE WATCHING TELEVISION AT THIS TIME. RESPIRATIONS ARE EVEN AND UNLABORED ON ROOM AIR. NO SIGNS OF DISTRESS NOTED. PT IS ALERT AND ORIENTED X4, ABLE TO VERBALIZE NEEDS, ABLE TO FOLLOW COMMANDS. PT IS ON CARDIAC DIET, TOLERATING WELL. PT UTILIZES URINAL AT BEDSIDE. LAST BOWEL MOVEMENT WAS 09/02/22. NO COMPLAINTS OF DIFFICULTY PASSING STOOL. PT HAS IV TO HIRAL 20G, SALINE LOCKED AT THIS TIME. CALL LIGHT WITHIN REACH. ALL SAFETY MEASURES IN PLACE. WILL CONTINUE TO MONITOR.
[2022-09-03 08:00] VITALS: BP 98/56
--- NOTE | 2022-09-03 08:00 | NUR ---
PLAN OF CARE WAS DISCUSSED TO GIZZARD SKIN REMOVER AND VERBALIZED UNDERSTANDING.
[2022-09-03] MEDS: RIFAXIMIN 550 MG TAB PO SCH ×2 (09:34→20:52)
[2022-09-03] MEDS: ASCORBIC ACID 500 MG TAB PO SCH (09:34)
[2022-09-03] MEDS: FERROUS SULFATE 325 MG TABEC PO SCH (09:35)
[2022-09-03] MEDS: FUROSEMIDE 20 MG TAB PO SCH (09:35)
[2022-09-03] MEDS: PANTOPRAZOLE 40 MG TABEC PO SCH ×2 (09:35→20:51)
[2022-09-03] MEDS: METOPROLOL 25 MG TAB PO SCH ×2 (09:35→20:49)
[2022-09-03] MEDS: LACTULOSE 20 GM/30 ML UDC PO SCH ×3 (09:35→16:43)
[2022-09-03] MEDS: METHADONE 10 MG TAB PO SCH (09:36)
--- NOTE | 2022-09-03 09:41 | NUR ---
ADMINISTERED ALL SCHEDULED MEDICATIONS. EDUCATED PT ON MEDS ADMINISTERED. PT VERBALIZED UNDERSTANDING. WILL CONTINUE TO MONITOR.
--- NOTE | 2022-09-03 12:50 | NUR ---
DID ROUNDS ON PT. PT IN BED WATCHING TELEVISION. NO COMPLAINTS OF PAIN OR DISCOMFORT. NO SIGNS OF DISTRESS NOTED.
--- NOTE | 2022-09-03 13:44 | NUR ---
PATIENT HAS BEEN SCREENED AND CATEGORIZED MODERATE NUTRITION RISK. PATIENT WILL BE SEEN WITHIN 3-5 DAYS OF ADMISSION. 09/02/22-09/07/22 REVIEWED BY PIPE [address]
--- NOTE | 2022-09-03 14:07 | NUR ---
DC PLANN[age] YRS OLD MALE PATIENT WAS ADMITTED FROM [facility] WITH A DX OF HYPERAMMONEMIA, PANCYTOPENIA, LIVER FAILURE. PATIENT HAS A HX OF CARDIAC DISORDER THROMBOCYTOPENIA, ANEMIA , GERD, HTN. CXR SHOWED CENTRAL VASCULAR CONGESTION. RAPID COVID TEST NEGATIVE. URINE AND BLOOD CULTURE PENDING. ADMINISTERED IV ABX ROCEPHIN AND CONTINUED HOME MEDS. DC PLAN TO RETURN TO [facility] WHEN STABLE. CM TO FOLLOW Addendum: 09/05/22 at 1159 by Francesca Milan RN DC PLANNING: PATIENT HAS A DC ORDER TO RETURN TO [facility] FOR IV ABX. FAXED ALL PAPERWORK. PT CAN GO TO ROOM 9C, PER NURSE UNABLE TO START IV AND ORDERED MID LINE. DC PLAN AWAITING FOR MID LINE INSERTION. CM TO FOLLOW Addendum: 09/05/22 at 1640 by Francesca Milan RN DC PLANNING: PATIENT GOING TO [facility] ROOM 9C # TO GIVE REPORT [phone]. WILL BE PICKED UP BY [facility] [facility] INTERNAL AUDIT SENIOR MANAGER TIME BETWEEN 7-8 PM [facility] NUMBER [phone] NOTIFIED MYCHAL ALMONTE.
--- NOTE | 2022-09-03 14:30 | NUR ---
DC PLANNING YOLIE MET WITH PT AT BEDSIDE TO COMPLETE ASSESSMENT. PATIENT REPORTS CURRENTLY BEING UNDER SKILLED CARE [place] [facility] [place], PT STRUGGLED TO RECALL DATE OF ADMISSION. PATIENT REPORTS PRIOR TO BEING UNDER SKILLED LIVING WITH A CLOSE FRIEND WHO RECENTLY PASSED. PATIENT REPORTS [facility] [place] A[place]ING HIM IN [place] [employer] HOUS[employer]. PATIENT IDENTIFIED FARSHAD KEVIN, SON, EMERGENCY CONTACT. PATIENT DENIES HAVING AD IN PLACE AND DECLINED AD OFFERED BY YOLIE. PATIENT REPORTS BEING FOLLOWED BY DR SEGOVIA AT FACILITY. PATIENT REPORTS MEDICATION COMPLIANCE AND REPORTS MEDICATION IS ADMINISTERED BY [facility] STAFF. PATIENT REPORTS BEING AMBULATORY WITH DME ASSISTANCE; WC AND REQUIRES ASSISTANCE WITH ADL'S WHICH [facility]FF AID WITH. PT DENIES MENTAL HEALTH HX. PATIENT REPORTS SUBSTANCE USE HX OF HEROINE WITH USE THAT SPANNED OVER 20YRS. PATIENT REPORTS BEING SOBER FOR THE LAST THREE YEARS AND REPORTS RECEIVING METHADONE EVERYDAY. PATIENT REPORTS OCCASIONAL ALCOHOL USE DESPITE BEING TOLD HE MAY HAVE CIRRHOSIS OF THE LIVER. SW PROVIDED PATIENT WITH PSYCHO EDUCATION ON GROUP HOME SUBSTANCE USE. PATIENT RECEPTIVE, HOWEVER DECLINED SUBSTANCE USE RESOURCES OFFERED BY YOLIE. PATIENT DENIES HX OF DIABETES, DIALYSIS TX,AND HH SERVICES. SW INQUIRED ON RESOURCES NEEDED, PATIENT DECLINED. PT REPORTS DC PLAN IS TO RETURN TO [facility] [place]CE MEDICALLY STABLE.
--- NOTE | 2022-09-03 15:20 | NUR ---
PT CALLED, ASKED TO BE UPDATED. ASKING "HOW LONG DO YOU THINK IM GONNA BE IN HERE. I NEED TO LET MY FRIENDS KNOW". UPDATED PT ON POC. ANSWERED ALL QUESTIONS.
[2022-09-03 16:00] VITALS: BP 99/55
--- NOTE | 2022-09-03 18:12 | NUR ---
RECEIVED C&S FROM [facility] [place]. PT CURRENTLY ON ROCEPHIN, SHOWING RESISTANCE. DR SEGOVIA NOTIFIED.
--- NOTE | 2022-09-03 19:19 | NUR ---
RECEIVED ENDORSEMENT FROM DAY SHIFT NURSE FOR CONTINUITY OF CARE. PT IS AWAKE, ALERT AND VERBALLY RESPONSIVE. SKIN INTACT AND WARM. IV SALINE LOCK ON RIGHT UPPER ARM INTACT AND PATENT WITH EASILY FLUSH. PT DENIES OF PAIN OR DISCOMFORT. PT CONSUMED 100% OF FOOD PREPARED. PT IS ON STABLE CONDITION. CONTINUE TO MONITOR.
--- NOTE | 2022-09-03 19:20 | NUR ---
ENDORSED PT TO BILLET HEATER NURSE FOR CONTINUITY OF CARE. PT IS STABLE.
[2022-09-03] MEDS: traZODone 50 MG TAB PO SCH (20:48)
[2022-09-03] MEDS: PIPERACILLIN/TAZOBACTAM 3.375 GM in DEXTROSE 5% 50 ML IV SCH (23:43)
--- NOTE | 2022-09-03 23:43 | NUR ---
PT RECEIVES FIRST DOSE OF ZOSYN, WELL TOLERATED, NO SIDE REACTION OR ALLERGY.
[2022-09-04] VITALS: BP 113/71
--- NOTE | 2022-09-04 01:12 | NUR ---
MAGNESIUM SULFATE DRIP ADMINISTERED ORDER DUE TO LAB RESULT OF 1.6. PT TOLERATES WELL.
--- NOTE | 2022-09-04 02:30 | NUR ---
PT IS AWAKE AND WATCHING TV. DENIES OF PAIN OR DISCOMFORT. NO SOB OR DISTRESS.
--- NOTE | 2022-09-04 04:30 | NUR ---
PT IS AWAKE AND WATCHING TV. PT STATED DOES NOT FEEL SLEEPY. HE USUALLY SLEEPS DURING DAY TIME AND NIGHT TIME AWAKES. DENIES OF PAIN OR DISCOMFORT. NO SOB OR DISTRESS.
[2022-09-04] MEDS: PIPERACILLIN/TAZOBACTAM 3.375 GM in DEXTROSE 5% 50 ML IV SCH ×3 (05:36→17:21)
[2022-09-04 05:46] LABS: BASOPHILS % (AUTO) 0.6 % (0.0-2.0); EOSINOPHILS # (AUTO) 0.2 K/uL (0-0.4); EOSINOPHILS % (AUTO) 3.8 % (0.0-4.0); HEMATOCRIT 35.6 % (36-52); HEMOGLOBIN 12.4 g/dL (12.0-18.0); LYMPHOCYTES # (AUTO) 0.5 K/uL (2.0-11.5); MEAN CORPUSCULAR HEMOGLOBIN 33 pg (27-31); MEAN CORPUSCULAR HGB CONC 35 g/dL (33-37); MEAN CORPUSCULAR VOLUME 95.1 fL (80-94); MONOCYTES # (AUTO) 0.5 K/uL (0.8-1.0); MONOCYTES % (AUTO) 12.6 % (1.7-9.3); NEUTROPHILS # (AUTO) 2.8 K/uL (1.8-7.7); PLATELET COUNT (AUTO) 30 K/uL (140-450); RED BLOOD CELL COUNT(AUTO) 3.74 MIL/uL (4.20-6.10); RED CELL DISTRIBUTION WIDTH 16.2 % (11.6-13.7)
[2022-09-04 06:01] LABS: ANION GAP 10.6 (8-16); CARBON DIOXIDE 27.3 mmol/L (21-32); CREATININE 0.9 mg/dL (0.6-1.3); POTASSIUM 3.9 mmol/L (3.5-5.1)
--- NOTE | 2022-09-04 07:20 | NUR ---
PT IS ON STABLE CONDITION, NO COMPLAINTS OF PAIN OR DISCOMFORT FROM PT. ALL SAFETY MEASURES ARE IN PLACE. NO SOB OR DISTRESS. ENDORSE TO DAY SHIFT NURSE FOR CONTINUITY OF CARE.
--- NOTE | 2022-09-04 07:25 | NUR ---
RECEIVED RE PROT FROM LABORER WHARF NURSE TERRI FOR CONTINUITY OF CARE. NO SIGNS OF DISTRESS OR LABORED BREATHING. PT IS A&OX4, SKIN INTACT WITH NO WOUNDS, AMBULATES TO THE BATHROOM, AND ON ROOM AIR. IV IS A 20G IN THE R UPPER ARM THAT IS INTACT, PATENT AND SALINE LOCKED. PT DENIES OF PAIN OR DISCOMFORT. BED IN LOW POSITION, TWO SIDE RAILS UP, CALL LIGHT WITHIN REACH AND ALL SAFETY MEASURES IN PLACE AT THIS TIME. WILL CONTINUE TO MONITOR.
[2022-09-04 08:00] VITALS: BP 97/56
[2022-09-04] MEDS: FUROSEMIDE 20 MG TAB PO SCH (08:34)
[2022-09-04] MEDS: METOPROLOL 25 MG TAB PO SCH ×2 (08:40→21:00)
[2022-09-04] MEDS: FERROUS SULFATE 325 MG TABEC PO SCH (08:40)
[2022-09-04] MEDS: ASCORBIC ACID 500 MG TAB PO SCH (08:41)
[2022-09-04] MEDS: METHADONE 10 MG TAB PO SCH (08:42)
[2022-09-04] MEDS: PANTOPRAZOLE 40 MG TABEC PO SCH ×2 (08:42→21:00)
[2022-09-04] MEDS: LACTULOSE 20 GM/30 ML UDC PO SCH ×3 (08:43→17:21)
[2022-09-04] MEDS: RIFAXIMIN 550 MG TAB PO SCH ×2 (08:43→21:00)
[2022-09-04 16:00] VITALS: BP 111/63
--- NOTE | 2022-09-04 19:15 | NUR ---
ENDORSED PT TO SORT WORKER NURSE DUANE ALMONTE, FOR CONTINUITY OF CARE. PT IN STABLE CONDITION
--- NOTE | 2022-09-04 19:16 | NUR ---
RECEIVED REPORT FROM ILIR MORNING SHIFT NURSE. PATIENT IS WELL RESTED IN BED BROWSING HIS PHONE. NO SOB NOTED ON ROOM AIR. DENIES PAIN. IV ACCESS ON THE RIGHT UPPER ARM 20 GAUGE. SKIN INTACT. CALL LIGHT WITHIN REACH. ALL SAFETY PRECAUTIONS ARE IN PLACE.
[2022-09-04] MEDS: traZODone 50 MG TAB PO SCH (21:00)
--- NOTE | 2022-09-04 23:05 | NUR ---
ANSWERED CALL LIGHT, NEEDS ATTENDED AND MET.
[2022-09-05] VITALS: BP 100/57
[2022-09-05] MEDS: PIPERACILLIN/TAZOBACTAM 3.375 GM in DEXTROSE 5% 50 ML IV SCH ×4 (00:13→18:26)
--- NOTE | 2022-09-05 02:00 | NUR ---
PATIENT SLEEPING. RESPIRATION REGULAR NON LABORED. CALL LIGHT WITHIN REACH.
[2022-09-05 05:51] LABS: BASOPHILS % (AUTO) 0.8 % (0.0-2.0); EOSINOPHILS # (AUTO) 0.2 K/uL (0-0.4); EOSINOPHILS % (AUTO) 5.8 % (0.0-4.0); HEMATOCRIT 34.6 % (36-52); LYMPHOCYTES # (AUTO) 0.5 K/uL (2.0-11.5); MEAN CORPUSCULAR HEMOGLOBIN 33 pg (27-31); MEAN CORPUSCULAR HGB CONC 35 g/dL (33-37); MEAN CORPUSCULAR VOLUME 94.5 fL (80-94); MONOCYTES # (AUTO) 0.4 K/uL (0.8-1.0); MONOCYTES % (AUTO) 12.1 % (1.7-9.3); NEUTROPHILS % (AUTO) 64.3 % (42.2-75.2); PLATELET COUNT (AUTO) 35 K/uL (140-450); RED BLOOD CELL COUNT(AUTO) 3.67 MIL/uL (4.20-6.10); RED CELL DISTRIBUTION WIDTH 15.9 % (11.6-13.7); WHITE BLOOD COUNT (AUTO) 3.1 K/uL (4.8-10.8)
[2022-09-05 06:01] LABS: ANION GAP 10.8 (8-16); CARBON DIOXIDE 27.1 mmol/L (21-32); CREATININE 0.8 mg/dL (0.6-1.3); POTASSIUM 3.9 mmol/L (3.5-5.1)
--- NOTE | 2022-09-05 07:33 | NUR ---
GAVE REPORT TO MORNING SHIFT NURSE ODETTE FOR CONTINUITY OF CARE.
[2022-09-05 08:00] VITALS: BP 110/75
[2022-09-05] MEDS: FERROUS SULFATE 325 MG TABEC PO SCH (08:00)
[2022-09-05] MEDS: RIFAXIMIN 550 MG TAB PO SCH (09:00)
[2022-09-05] MEDS: METHADONE 10 MG TAB PO SCH (09:00)
[2022-09-05] MEDS: FUROSEMIDE 20 MG TAB PO SCH (09:00)
[2022-09-05] MEDS: PANTOPRAZOLE 40 MG TABEC PO SCH (09:00)
[2022-09-05] MEDS: ASCORBIC ACID 500 MG TAB PO SCH (09:00)
[2022-09-05] MEDS: METOPROLOL 25 MG TAB PO SCH (09:00)
[2022-09-05] MEDS: LACTULOSE 20 GM/30 ML UDC PO SCH ×3 (09:00→17:02)
[2022-09-05] MEDS ORDERED: IV Zosyn IV (09:30)
[2022-09-05 16:00] VITALS: BP 105/48
--- NOTE | 2022-09-05 18:30 | NUR ---
pt is scheduled to be discharge today. repotr Addendum: 09/05/22 at 1926 by Agency Ju ALMONTE RN report given to Louann ALMONTE at [facility].
--- NOTE | 2022-09-05 19:45 | NUR ---
GET THE REPORT FROM MORNING NURSE ADZE ,PATIENT IS LYING ON BED, PATIENT IS ALERT ORIENTED X4, ALL FALL PRECAUTION MEASURE ARE IN PLACE, CALL LIGHT IS WITHIN THE REACH, WILL CONTINUE TO MONITOR PATIENT.
--- NOTE | 2022-09-05 20:16 | NUR ---
PATIENT IS PICKED UP BY [facility] TO [facility], VITAL SIGN IS WITHIN THE NORMAL RANGE, SPOKE WITH JEFF IN [facility], PATIENT IS STABLE.
== END 2022-09-05 20:15 | DRG 871 ==
LOC: MED 09:10 → MTU 14:01
PROVIDERS: ADMIT Family Medicine; ATTEND Family Medicine
DX: A41.9 Sepsis, unspecified organism (principal); E43 Unspecified severe protein-calorie malnutrition; N39.0 Urinary tract infection, site not specified; E72.4 Disorders of ornithine metabolism; D61.818 Other pancytopenia; K76.6 Portal hypertension; Z68.41 Body mass index [BMI] 40.0-44.9, adult; K76.82 Hepatic encephalopathy; E83.51 Hypocalcemia; D64.9 Anemia, unspecified; Z20.822 Contact with and (suspected) exposure to COVID-19; K74.60 Unspecified cirrhosis of liver; K21.9 Gastro-esophageal reflux disease without esophagitis; E83.42 Hypomagnesemia; E80.6 Other disorders of bilirubin metabolism; R74.01 Elevation of levels of liver transaminase levels; I11.0 Hypertensive heart disease with heart failure; I50.9 Heart failure, unspecified; D69.59 Other secondary thrombocytopenia; K80.20 Calculus of gallbladder without cholecystitis without obstruction; I73.9 Peripheral vascular disease, unspecified; Z87.891 Personal history of nicotine dependence
CPT/HCPCS: 36415; 71045; 80048; 80053; 80305; 81001; 82140; 83605; 83735; 83880; 84484; 85025; 85610; 85730; 87040; 87081; 87086; 93005; 96365; 97110; 97116; 97163-GP; 97530; 99285; J0696; J2543; J3475; J7060; Q0092